=== PATIENT | female | born 1930 | race African-American/Black ===

== ENCOUNTER 2018-05-05 15:22 | Inpatient (IN) | payer MEDICARE ==
[~2018-05-05] VITALS: Ht 157.5 cm; Wt 51.7 kg
--- NOTE | 2018-05-05 15:38 | Emergency Room Report ---
History of Present Illness General Chief Complaint: Generalized Weakness Source: Patient, Family Member Present Illness HPI 87-year-old female with history of autoimmune hepatitis and subsequent cirrhosis , diabetes, CAD, presents with an episode of vomiting last week as well as generalized weakness and inability to tolerate her home meds, including lactulose. She has not had any falls, no injuries and family reports that she is talking more slowly than usual but not slurred and no focal weaknesses or any new complaints. She comes from home and has a Sosa catheter indwelling, and that has not been changed for one month. Allergies: Coded Allergies: No Known Allergies (Unverified , 05/05/18) Patient History Limited by: medical condition Past Medical History: see triage record Reviewed Nursing Documentation: PMH: Agreed; PSxH: Agreed Review of Systems All Other Systems: negative except mentioned in HPI Physical Exam Vital Signs Date Time Temp Pulse Resp B/P (MAP) Pulse Ox O2 Delivery O2 Flow Rate FiO2 05/05/18 15:14 85 18 129/52 97 Room Air Sp02 EP Interpretation: reviewed, normal General Appearance: alert, mild distress Head: normocephalic Eyes: bilateral eye normal inspection, bilateral eye PERRL, bilateral eye EOMI , bilateral eye Scleral Injection ENT: normal ENT inspection, hearing grossly normal, normal pharynx, no angioedema, normal voice - Slow, but steady without dysarthria, moist mucus membranes Neck: normal inspection, full range of motion, supple, supple/symm/no masses Respiratory: chest non-tender, lungs clear, normal breath sounds, chest symmetrical, palpation of chest normal Cardiovascular #1: normal peripheral pulses, regular rate, rhythm Cardiovascular #2: 2+ radial (R), 2+ radial (L) Gastrointestinal: non tender, soft, no guarding, no rebound, distended Rectal: deferred Genitourinary: normal inspection, no CVA tenderness Musculoskeletal: back normal, gait/station normal, normal range of motion, non- tender, no calf tenderness Neurologic: alert, responsive, assistant portfolio 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 No abdominal pain, no rebound tenderness, although positive ascites on exam, do not suspect SBP. Patient found to be in renal failure, never had HD before, but with known h/o CKD, was on hospice and now family has taken her off of it and want to pursue care. EKG Diagnostic Results EKG Time: 15:51 EP Interpretation: no st-t changes, no twi's Rate: normal Rhythm: NSR ST Segments: no acute changes Rhythm Strip Diag. Results Rhythm Strip Time: 16:03 EP Interpretation: yes Rate: 87 Rhythm: NSR, no PVC's, no ectopy Chest X-Ray Diagnostic Results Chest X-Ray Diagnostic Results : Chest X-Ray Ordered: Yes # of Views/Limited/Complete: 1 View Indication: Other EP Interpretation: Yes PA Xray: Interpretation reviewed Interpretation: no consolidation, no effusion, no pneumothorax, no acute cardiopulmonary disease Impression: No acute disease Electronically Signed by: Mat Hayden MD CT/MRI/US Diagnostic Results CT/MRI/US Diagnostic Results : Imaging Test Ordered: ct head Impression old lacunar infarct Last Vital Signs Date Time Temp Pulse Resp B/P (MAP) Pulse Ox O2 Delivery O2 Flow Rate FiO2 05/05/18 15:14 85 18 129/52 97 Room Air Disposition: ADMITTED INPATIENT Condition: Stable MAT HAYDEN M.D May 05, 2018 15:38
[2018-05-05] MEDS ORDERED: UNOBMED (15:54)
[2018-05-05 16:45] LABS: APPEARANCE,URINE CLOUDY; BILIRUBIN, URINE NEGATIVE (NEGATIVE); GLUCOSE, URINE (UA) NEGATIVE (NEGATIVE); KETONES,URINE 1+ (NEGATIVE); LEUKOCYTE ESTERASE ,URINE 3+ (NEGATIVE); NITRITE,URINE POSITIVE (NEGATIVE); PH,URINE 6.5 (4.5-8.0); PROTEIN,URINE 4+ (NEGATIVE); UROBILINOGEN,URINE NORMAL MG/DL (0.0-1.0)
[2018-05-05 16:47] LABS: COLOR,URINE YELLOW
--- NOTE | 2018-05-05 17:02 | Diagnostic Imaging Report ---
Indication: Chest Technique: One view of the chest Comparison: none Findings: Lungs and pleural spaces are clear. Heart size is normal Impression: No acute process
--- NOTE | 2018-05-05 17:02 | Diagnostic Imaging Report ---
Indications: Altered mental status Technique: Spiral acquisitions obtained through the brain. Angled axial and coronal 5 x 5 mm slices were reconstructed. Total dose length product 1245.59 mGycm. CTDI vol(s) 70.38 mGy. Dose reduction achieved using automated exposure control Comparison: None. Findings: Old lacunar infarct is seen in the anterior right lentiform nucleus. Old lacunar infarct is seen in the anterior limb of the left internal capsule and another in the left lentiform nucleus. No acute intracranial hemorrhage nor edema, mass effect, nor midline shift. There is age-related enlargement of the ventricles and extra-axial CSF spaces and periventricular deep white matter chronic low-attenuation. The calvarium is intact. The orbits and sinuses are unremarkable. Impression: Chronic and age-related changes Negative for acute intracranial bleed or mass effect The CT scanner at [facility] is accredited by the [employer] and the scans are performed using protocols designed to limit radiation exposure to as low as reasonably achievable to attain images of sufficient resolution adequate for diagnostic evaluation.
[2018-05-05 17:11] LABS: AMMONIA 34 umol/L (11-32)
[2018-05-05] MEDS ORDERED: cefTRIAXone 1 GM in NS 55 ML IVPB ONE (17:15)
[2018-05-05 17:21] LABS: ANION GAP 30 mmol/L (5-15); BLOOD UREA NITROGEN 196 mg/dL (7-18); CALCIUM 8.8 MG/DL (8.5-10.1); CARBON DIOXIDE 11 MMOL/L (21-32); CHLORIDE 106 MMOL/L (98-107); CREATININE 16.6 MG/DL (0.55-1.30); POTASSIUM 4.9 MMOL/L (3.5-5.1); SODIUM 147 MMOL/L (136-145)
[2018-05-05 17:23] LABS: ALANINE AMINOTRANSFERASE 18 U/L (12-78); ALBUMIN 2.4 G/DL (3.4-5.0); ALBUMIN/GLOBULIN RATIO 0.5 (1.0-2.7); ALKALINE PHOSPHATASE 132 U/L (46-116); ASPARTATE AMINO TRANSFERASE 33 U/L (15-37); BILIRUBIN,TOTAL 0.8 MG/DL (0.2-1.0); CKMB 13.2 NG/ML (0.0-3.6); CREATINE KINASE 259 U/L (26-308)
[2018-05-05 17:57] LABS: HEMATOCRIT 28.8 % (37.0-47.0); HEMOGLOBIN 9.1 G/DL (12.0-16.0); MEAN CORPUSCULAR VOLUME 104 FL (80-99); PLATELET COUNT 63 K/UL (150-450); RED BLOOD COUNT 2.77 M/UL (4.20-5.40); RED CELL DISTRIBUTION WIDTH 13.6 % (11.6-14.8); WHITE BLOOD COUNT 7.3 K/UL (4.8-10.8)
[2018-05-05 17:58] VITALS: BP 101/51
[2018-05-05] MEDS ORDERED: Lactulose 20gm/30ml UDC ORAL ONE (18:00)
[2018-05-05 19:30] VITALS: BP 91/48
[2018-05-05 21:00] VITALS: BP 96/53
[2018-05-05] MEDS ORDERED: Albumin Human 5% 250ml IV SCH (21:00)
[2018-05-05 23:00] VITALS: BP 103/65
[2018-05-05] MEDS ORDERED: Acetaminophen 650mg/20.3ml GT PRN (23:15)
[2018-05-05] MEDS: Pantoprazole Inj IVP SCH (23:41)
--- NOTE | 2018-05-05 23:48 | Cardiology Progress Note ---
Assessment/Plan Assessment/Plan The patient is seen and examined, full consult note will be dictated shortly. Objective Last 24 Hour Vital Signs Date Time Temp Pulse Resp B/P (MAP) Pulse Ox O2 Delivery O2 Flow Rate FiO2 05/05/18 22:05 97.8 74 19 99/53 98 Room Air 05/05/18 21:00 97.6 74 17 96/53 98 Room Air 97.6 05/05/18 19:30 97.7 76 18 91/48 98 Room Air 97.7 05/05/18 17:58 79 18 101/51 98 Room Air 05/05/18 15:14 85 18 129/52 97 Room Air Laboratory Tests Test 05/05/18 15:32 05/05/18 16:17 05/05/18 17:20 05/05/18 18:40 Sodium Level 147 MMOL/L (136-145) H Potassium Level 4.9 MMOL/L (3.5-5.1) Chloride Level 106 MMOL/L (98-107) Carbon Dioxide Level 11 MMOL/L (21-32) L Anion Gap 30 mmol/L (5-15) H Blood Urea Nitrogen 196 mg/dL (7-18) H Creatinine 16.6 MG/DL (0.55-1.30) H Estimat Glomerular Filtration Rate mL/min (>60) Glucose Level 108 MG/DL (74-106) H Lactic Acid Level 6.60 mmol/L (0.4-2.0) H 6.70 mmol/L (0.66-2.22) H Calcium Level 8.8 MG/DL (8.5-10.1) Total Bilirubin 0.8 MG/DL (0.2-1.0) Aspartate Amino Transf (AST/SGOT) 33 U/L (15-37) Alanine Aminotransferase (ALT/SGPT) 18 U/L (12-78) Alkaline Phosphatase 132 U/L (46-116) H Ammonia 34 umol/L (11-32) H Total Creatine Kinase 259 U/L (26-308) Creatine Kinase MB 13.2 NG/ML (0.0-3.6) H Creatine Kinase MB Relative Index 5.0 Troponin I 0.727 ng/mL (0.000-0.056) C-Reactive Protein, Quantitative 2.4 mg/dL (0.00-0.90) H Total Protein 7.3 G/DL (6.4-8.2) Albumin 2.4 G/DL (3.4-5.0) L Globulin 4.9 g/dL Albumin/Globulin Ratio 0.5 (1.0-2.7) L Urine Color Yellow Urine Appearance Cloudy Urine pH 6.5 (4.5-8.0) Urine Specific [place] 1.015 (1.005-1.035) Urine Protein 4+ (NEGATIVE) H Urine Glucose (UA) Negative (NEGATIVE) Urine Ketones 1+ (NEGATIVE) H Urine Blood 5+ (NEGATIVE) H Urine Nitrite Positive (NEGATIVE) H Urine Bilirubin Negative (NEGATIVE) Urine Urobilinogen Normal MG/DL (0.0-1.0) Urine Leukocyte Esterase 3+ (NEGATIVE) H Urine RBC 5-10 /HPF (0 - 2) H Urine WBC 20-30 /HPF (0 - 2) H Urine Squamous Epithelial Cells Few /LPF (NONE/OCC) Urine Amorphous Sediment Few /LPF (NONE) H Urine Bacteria Many /HPF (NONE) H Urine Yeast Moderate /HPF (NONE) H White Blood Count 7.3 K/UL (4.8-10.8) Red Blood Count 2.77 M/UL (4.20-5.40) L Hemoglobin 9.1 G/DL (12.0-16.0) L Hematocrit 28.8 % (37.0-47.0) L Mean Corpuscular Volume 104 FL (80-99) H Mean Corpuscular Hemoglobin 33.1 PG (27.0-31.0) H Mean Corpuscular Hemoglobin Concent 31.8 G/DL (32.0-36.0) L Red Cell Distribution Width 13.6 % (11.6-14.8) Platelet Count 63 K/UL (150-450) L Mean Platelet Volume 7.6 FL (6.5-10.1) Neutrophils (%) (Auto) % (45.0-75.0) Lymphocytes (%) (Auto) % (20.0-45.0) Monocytes (%) (Auto) % (1.0-10.0) Eosinophils (%) (Auto) % (0.0-3.0) Basophils (%) (Auto) % (0.0-2.0) Differential Total Cells Counted 100 Neutrophils % (Manual) 93 % (45-75) H Lymphocytes % (Manual) 4 % (20-45) L Monocytes % (Manual) 3 % (1-10) Eosinophils % (Manual) 0 % (0-3) Basophils % (Manual) 0 % (0-2) Band Neutrophils 0 % (0-8) Platelet Estimate Decreased L Platelet Morphology Normal Hypochromasia 1+ Anisocytosis 1+ Macrocytosis 2+ Rubio Meyer MD May 05, 2018 23:48
[2018-05-06] MEDS: Sodium Bicarbonate 50 ML in D5 1/2NS 1,000 ML IV SCH ×2 (00:20→13:35)
[2018-05-06] MEDS ORDERED: LACTULOSE10 GM/153 PO (01:07)
[2018-05-06] MEDS ORDERED: NEPHROVITE1 TAB ORAL (01:07)
[2018-05-06] MEDS ORDERED: ALPRAZOLAM0.5 MG PO (01:08)
[2018-05-06] MEDS ORDERED: FUROSEMIDE40 MG ORAL (01:09)
[2018-05-06] MEDS ORDERED: XIFAXAN550 MG ORAL (01:09)
[2018-05-06 04:00] VITALS: BP 120/66
[2018-05-06 05:10] LABS: HEMATOCRIT 23.2 % (37.0-47.0); HEMOGLOBIN 7.5 G/DL (12.0-16.0); MEAN CORPUSCULAR VOLUME 105 FL (80-99); PLATELET COUNT 42 K/UL (150-450); RED BLOOD COUNT 2.21 M/UL (4.20-5.40); RED CELL DISTRIBUTION WIDTH 13.5 % (11.6-14.8); WHITE BLOOD COUNT 5.3 K/UL (4.8-10.8)
[2018-05-06 05:26] LABS: AMMONIA < 10 umol/L (11-32)
[2018-05-06 05:31] LABS: ALANINE AMINOTRANSFERASE 18 U/L (12-78); ALBUMIN 2.8 G/DL (3.4-5.0); ALBUMIN/GLOBULIN RATIO 0.7 (1.0-2.7); ALKALINE PHOSPHATASE 112 U/L (46-116); ANION GAP 34 mmol/L (5-15); ASPARTATE AMINO TRANSFERASE 28 U/L (15-37); BILIRUBIN,TOTAL 0.9 MG/DL (0.2-1.0); BLOOD UREA NITROGEN 199 mg/dL (7-18); CALCIUM 8.5 MG/DL (8.5-10.1); CHLORIDE 107 MMOL/L (98-107); CHOLESTEROL 134 MG/DL (< 200); CREATINE KINASE 240 U/L (26-308); CREATININE 16.5 MG/DL (0.55-1.30); FERRITIN 734 NG/ML (8-388); GAMMA GLUTAMYL TRANSPEPTIDASE 67 U/L (5-85); HDL CHOLESTEROL 15 MG/DL (40-60); PHOSPHORUS 17.7 MG/DL (2.5-4.9); POTASSIUM 4.2 MMOL/L (3.5-5.1); SODIUM 150 MMOL/L (136-145); TRIGLYCERIDES 148 MG/DL (30-150)
--- NOTE | 2018-05-06 05:45 | Consultation ---
DATE OF CONSULTATION: 05/05/2018 CARDIOLOGY CONSULTATION CONSULTING PHYSICIAN: Rubio Meyer M.D. REFERRING PHYSICIAN: Atilio Viera M.D. REASON FOR CONSULTATION: Management of hypotension. HISTORY OF PRESENT ILLNESS: The patient is a very unfortunate 87-year-old female with history of autoimmune hepatitis leading to liver cirrhosis, history of diabetes mellitus, history of coronary artery disease, history of chronic kidney disease, and history of hemorrhoidal bleed, who presents to the hospital with episode of vomiting as well as progressive worsening of generalized weakness, inability to tolerate home medication. The patient is a very poor historian and is not capable of providing any history due to altered level of consciousness. The patient comes from home with an indwelling Sosa catheter. According to the family member at the bedside, the urine output has diminished. Mental status has been gradually worsened. At the time of my evaluation in the emergency department, the patient's blood pressure was less than 100 mmHg in the emergency department. Apparently, the patient was at home hospice, but the family members changed the status of her home hospice to only Chemical Code. This information was obtained verbally in the emergency department of the [facility] on 05/05/2018. There is no formal documentation about the code status at this time. Given the above, the patient's disposition from the ER was upgraded from Medical/Surgical to telemetry. At the time of arrival of the patient to the hospital, the patient's rhythm was in sinus with short runs of supraventricular tachycardia. PAST MEDICAL HISTORY: 1. Autoimmune hepatitis. 2. Liver cirrhosis. 3. Hemorrhoidal bleed. 4. Diabetes mellitus. 5. Chronic kidney disease. 6. CAD. 7. Failure to thrive. PAST SURGICAL HISTORY: Unknown. MEDICATIONS: At this time, the list of medication at home is not available. ALLERGIES: No known drug allergies. FAMILY HISTORY: No premature coronary artery disease in first-degree relatives. REVIEW OF SYSTEMS: The patient is altered and is not capable of providing any history. PHYSICAL EXAMINATION: GENERAL: The patient was altered, not capable of providing any history. VITAL SIGNS: Blood pressure in the emergency department was 99/48, heart rate was 95, respirations of 18, and O2 saturation was 92%. HEENT: Atraumatic and normocephalic. Pupils are equal, round, and reactive to light and accommodation. Conjunctivae pallor. NECK: JVP less than 5 cm. No carotid bruit. CARDIOVASCULAR: Normal S1 and S2. Tachycardic. No murmurs, gallops, or rubs. LUNGS: Diminished breath sounds in both bases. ABDOMEN: Soft, nontender, and nondistended. No hepatosplenomegaly. Positive bowel sounds. EXTREMITIES: No evidence of edema, clubbing, or cyanosis. LABORATORY AND DIAGNOSTIC DATA: CT of head showed chronic and age-related changes negative for acute intracranial bleed or mass effect. Chest x-ray was significant for no acute cardiopulmonary disease. A 12-lead electrocardiogram shows sinus rhythm at a rate of [address] and T-wave abnormalities. Laboratory findings, WBC was 7.3, hemoglobin 9.1, hematocrit of 28.8, and platelet count was 63. Chemistry showed sodium 147, potassium 4.9, chloride 106, bicarbonate 11, BUN of 196, creatinine 16.6, and glucose was 108. Lactic acid was 6.6. Calcium was 8.8. Ammonia of 34. Troponin I 0.727. ASSESSMENT AND PLAN: The patient is a very unfortunate 87-year-old female, who is seen in Cardiology consultation at the request of Dr. Viera. 1. Hypotension. This is most likely due to septic shock or hypoalbuminemia associated with liver cirrhosis. The patient's albumin level is 2.4. She may benefit from 15% albumin to 25% albumin administration. If the blood pressure is not well preserved, one may have to consider IV pressors. 2. Slight elevation of troponin I level, could be a variety of etiologies including , non-ST elevation myocardial infarction type 2, or troponin leakage associated with renal failure. At this time, given the patient's comorbidities including liver cirrhosis and severe renal failure, the patient is not considered to be a suitable candidate for ischemic workup. We will like to obtain 2D echocardiography for assessment of left ventricular systolic and diastolic function and evaluation of pulmonary artery pressure. I would like to thank, Dr. Viera, for the courtesy of this consultation. Rubio Meyer M.D. DR: ANNIE JOB#: [id number] CC:
[2018-05-06 05:55] LABS: CARBON DIOXIDE 9 MMOL/L (21-32)
[2018-05-06 06:27] LABS: % IRON SATURATION 97 % (15-50); IRON 70 ug/dL (50-175); TOTAL IRON BINDING CAPACITY 72 ug/dL (250-450)
[2018-05-06 07:46] VITALS: BP 105/62
[2018-05-06] MEDS: Pantoprazole Inj IVP SCH (08:18)
--- NOTE | 2018-05-06 08:56 | Consultation ---
Consult Note Consult Note asked to eval for renal failure 87-year-old female with history of autoimmune hepatitis and subsequent cirrhosis , diabetes, CAD, presents with an episode of vomiting last week as well as generalized weakness and inability to tolerate her home meds, including lactulose. She has not had any falls, no injuries and family reports that she is talking more slowly than usual but not slurred and no focal weaknesses or any new complaints. She comes from home and has a Sosa catheter indwelling, and that has not been changed for one month. No Known Allergies (Unverified , 05/05/18) Sp02 EP Interpretation: reviewed, normal General Appearance: alert, mild distress Head: normocephalic Eyes: bilateral eye normal inspection, bilateral eye PERRL, bilateral eye EOMI , bilateral eye Scleral Injection ENT: normal ENT inspection, hearing grossly normal, normal pharynx, no angioedema, normal voice - Slow, but steady without dysarthria, moist mucus membranes Neck: normal inspection, full range of motion, supple, supple/symm/no masses Respiratory: chest non-tender, lungs clear, normal breath sounds, chest symmetrical, palpation of chest normal Cardiovascular #1: normal peripheral pulses, regular rate, rhythm Cardiovascular #2: 2+ radial (R), 2+ radial (L) Gastrointestinal: non tender, soft, no guarding, no rebound, distended Rectal: deferred Genitourinary: normal inspection, no CVA tenderness Musculoskeletal: back normal, gait/station normal, normal range of motion, non- tender, no calf tenderness Neurologic: alert, responsive, 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 . Assessment/Plan acute on chronic renal failure Anemia was on Hospice, but taken off family agree with no chest compression and intubation UTI Cachexia metabolic acidosis : High lactate and Uremia dialysis cath dialysis transfusion per orders Gage Medley MD May 06, 2018 08:56
[2018-05-06] MEDS ORDERED: Metoclopramide 10mg/2ml Inj IVP PRN (09:09)
--- NOTE | 2018-05-06 10:22 | Consultation ---
Consult Note Assessment/Plan Patient seen and examined. Full dictation to follow. Hemanth Gee MD May 06, 2018 10:22
[2018-05-06 10:54] LABS: INR 1.8 (0.9-1.1)
--- NOTE | 2018-05-06 11:42 | Consultation ---
History of Present Illness General Date patient seen: May 06, 2018 Chief Complaint: Generalized Weakness Present Illness HPI 87-year-old female with history of autoimmune hepatitis and subsequent cirrhosis , diabetes, CAD, presents with an episode of vomiting last and weakness. the pt was agitated and confused. the pt has waxing and waning of consciousness/ The family were in room who stated that the pt didn't sleep last night. Allergies: Coded Allergies: CLONIDINE (Unverified Allergy, Mild, Rash, 05/06/18) clonidine patch* Medication History Scheduled Furosemide* (Lasix*), 40 MG ORAL TWICE A DAY, (Reported) Lactulose (Lactulose), 30 GM PO TID, (Reported) Rifaximin* (Xifaxan*), 550 MG ORAL TWICE A DAY, (Reported) Vitamin B Cmplx/Vit C/Folic AC (Nephro-Luis Tablet), 1 TAB ORAL DAILY, (Reported ) Scheduled PRN Alprazolam* (Xanax*), 0.5 MG PO TID PRN for For Anxiety, (Reported) Miscellaneous Medications Unable to Obtain Medications (Unable To Obtain Meds), (Reported) Patient History Limited by: medical condition History Provided By: Patient, Family Member, Medical Record, PMD Healthcare decision maker Resuscitation status Full Code Advanced Directive on File Past Medical/Surgical History Past Medical/Surgical History: (1) Renal failure (2) UTI (urinary tract infection) (3) Episode of generalized weakness Review of Systems Psychiatric: Reports: prior hx, anxiety, depressed feelings, emotional problems , hallucinations Physical Exam General Appearance: WD/WN, alert, confused, agitated Last 24 Hour Vital Signs Date Time Temp Pulse Resp B/P (MAP) Pulse Ox O2 Delivery O2 Flow Rate FiO2 05/06/18 09:50 94 Nasal Cannula 3.0 32 05/06/18 09:50 Nasal Cannula 3.0 32 05/06/18 07:46 86 20 105/62 (76) 05/06/18 07:45 88 05/06/18 07:28 Nasal Cannula 3.0 05/06/18 04:00 88 05/06/18 04:00 97.0 79 20 120/66 (84) 94 97.0 05/05/18 23:00 97.0 91 20 103/65 (78) 94 97.0 05/05/18 22:44 Nasal Cannula 3.0 05/05/18 22:44 91 05/05/18 22:05 97.8 74 19 99/53 98 Room Air 05/05/18 21:00 97.6 74 17 96/53 98 Room Air 97.6 05/05/18 19:30 97.7 76 18 91/48 98 Room Air 97.7 05/05/18 17:58 79 18 101/51 98 Room Air 05/05/18 15:14 85 18 129/52 97 Room Air Intake and Output 05/05/18 05/06/18 19:00 07:00 Intake Total 75 ml Output Total 30 ml Balance -30 ml 75 ml Intake IV Total 75 ml Output Urine Total 30 ml # Voids 3 # Bowel Movements 6 Laboratory Tests Test 05/05/18 15:32 05/05/18 16:17 05/05/18 17:20 05/05/18 18:40 Sodium Level 147 MMOL/L (136-145) H Potassium Level 4.9 MMOL/L (3.5-5.1) Chloride Level 106 MMOL/L (98-107) Carbon Dioxide Level 11 MMOL/L (21-32) L Anion Gap 30 mmol/L (5-15) H Blood Urea Nitrogen 196 mg/dL (7-18) H Creatinine 16.6 MG/DL (0.55-1.30) H Estimat Glomerular Filtration Rate mL/min (>60) Glucose Level 108 MG/DL (74-106) H Lactic Acid Level 6.60 mmol/L (0.4-2.0) H 6.70 mmol/L (0.66-2.22) H Calcium Level 8.8 MG/DL (8.5-10.1) Total Bilirubin 0.8 MG/DL (0.2-1.0) Aspartate Amino Transf (AST/SGOT) 33 U/L (15-37) Alanine Aminotransferase (ALT/SGPT) 18 U/L (12-78) Alkaline Phosphatase 132 U/L (46-116) H Ammonia 34 umol/L (11-32) H Total Creatine Kinase 259 U/L (26-308) Creatine Kinase MB 13.2 NG/ML (0.0-3.6) H Creatine Kinase MB Relative Index 5.0 Troponin I 0.727 ng/mL (0.000-0.056) C-Reactive Protein, Quantitative 2.4 mg/dL (0.00-0.90) H Total Protein 7.3 G/DL (6.4-8.2) Albumin 2.4 G/DL (3.4-5.0) L Globulin 4.9 g/dL Albumin/Globulin Ratio 0.5 (1.0-2.7) L Urine Color Yellow Urine Appearance Cloudy Urine pH 6.5 (4.5-8.0) Urine Specific [place] 1.015 (1.005-1.035) Urine Protein 4+ (NEGATIVE) H Urine Glucose (UA) Negative (NEGATIVE) Urine Ketones 1+ (NEGATIVE) H Urine Blood 5+ (NEGATIVE) H Urine Nitrite Positive (NEGATIVE) H Urine Bilirubin Negative (NEGATIVE) Urine Urobilinogen Normal MG/DL (0.0-1.0) Urine Leukocyte Esterase 3+ (NEGATIVE) H Urine RBC 5-10 /HPF (0 - 2) H Urine WBC 20-30 /HPF (0 - 2) H Urine Squamous Epithelial Cells Few /LPF (NONE/OCC) Urine Amorphous Sediment Few /LPF (NONE) H Urine Bacteria Many /HPF (NONE) H Urine Yeast Moderate /HPF (NONE) H White Blood Count 7.3 K/UL (4.8-10.8) Red Blood Count 2.77 M/UL (4.20-5.40) L Hemoglobin 9.1 G/DL (12.0-16.0) L Hematocrit 28.8 % (37.0-47.0) L Mean Corpuscular Volume 104 FL (80-99) H Mean Corpuscular Hemoglobin 33.1 PG (27.0-31.0) H Mean Corpuscular Hemoglobin Concent 31.8 G/DL (32.0-36.0) L Red Cell Distribution Width 13.6 % (11.6-14.8) Platelet Count 63 K/UL (150-450) L Mean Platelet Volume 7.6 FL (6.5-10.1) Neutrophils (%) (Auto) % (45.0-75.0) Lymphocytes (%) (Auto) % (20.0-45.0) Monocytes (%) (Auto) % (1.0-10.0) Eosinophils (%) (Auto) % (0.0-3.0) Basophils (%) (Auto) % (0.0-2.0) Differential Total Cells Counted 100 Neutrophils % (Manual) 93 % (45-75) H Lymphocytes % (Manual) 4 % (20-45) L Monocytes % (Manual) 3 % (1-10) Eosinophils % (Manual) 0 % (0-3) Basophils % (Manual) 0 % (0-2) Band Neutrophils 0 % (0-8) Platelet Estimate Decreased L Platelet Morphology Normal Hypochromasia 1+ Anisocytosis 1+ Macrocytosis 2+ Test 05/06/18 03:53 05/06/18 06:05 05/06/18 07:53 05/06/18 10:10 White Blood Count 5.3 K/UL (4.8-10.8) Red Blood Count 2.21 M/UL (4.20-5.40) L Hemoglobin 7.5 G/DL (12.0-16.0) L Hematocrit 23.2 % (37.0-47.0) L Mean Corpuscular Volume 105 FL (80-99) H Mean Corpuscular Hemoglobin 33.8 PG (27.0-31.0) H Mean Corpuscular Hemoglobin Concent 32.2 G/DL (32.0-36.0) Red Cell Distribution Width 13.5 % (11.6-14.8) Platelet Count 42 K/UL (150-450) L Mean Platelet Volume 9.1 FL (6.5-10.1) Neutrophils (%) (Auto) % (45.0-75.0) Lymphocytes (%) (Auto) % (20.0-45.0) Monocytes (%) (Auto) % (1.0-10.0) Eosinophils (%) (Auto) % (0.0-3.0) Basophils (%) (Auto) % (0.0-2.0) Differential Total Cells Counted 100 Neutrophils % (Manual) 82 % (45-75) H Lymphocytes % (Manual) 2 % (20-45) L Monocytes % (Manual) 13 % (1-10) H Eosinophils % (Manual) 2 % (0-3) Basophils % (Manual) 1 % (0-2) Band Neutrophils 0 % (0-8) Platelet Estimate Decreased L Platelet Morphology Normal Hypochromasia 3+ Anisocytosis 1+ Macrocytosis 1+ Sodium Level 150 MMOL/L (136-145) H Potassium Level 4.2 MMOL/L (3.5-5.1) Chloride Level 107 MMOL/L (98-107) Carbon Dioxide Level 9 MMOL/L (21-32) *L Anion Gap 34 mmol/L (5-15) H Blood Urea Nitrogen 199 mg/dL (7-18) H Creatinine 16.5 MG/DL (0.55-1.30) H Estimat Glomerular Filtration Rate mL/min (>60) Glucose Level 156 MG/DL (74-106) H Hemoglobin A1c 5.6 % (4.3-6.0) Lactic Acid Level 7.70 mmol/L (0.4-2.0) H 6.40 mmol/L (0.66-2.22) H Uric Acid 17.1 MG/DL (2.6-7.2) H Calcium Level 8.5 MG/DL (8.5-10.1) Phosphorus Level 17.7 MG/DL (2.5-4.9) H Magnesium Level 2.6 MG/DL (1.8-2.4) H Iron Level 70 ug/dL (50-175) Total Iron Binding Capacity 72 ug/dL (250-450) L Percent Iron Saturation 97 % (15-50) H Unsaturated Iron Binding 2 ug/dL (112-346) L Ferritin 734 NG/ML (8-388) H Total Bilirubin 0.9 MG/DL (0.2-1.0) Gamma Glutamyl Transpeptidase 67 U/L (5-85) Aspartate Amino Transf (AST/SGOT) 28 U/L (15-37) Alanine Aminotransferase (ALT/SGPT) 18 U/L (12-78) Alkaline Phosphatase 112 U/L (46-116) Ammonia < 10 umol/L (11-32) L Total Creatine Kinase 240 U/L (26-308) Troponin I 0.747 ng/mL (0.000-0.056) C-Reactive Protein, Quantitative 2.5 mg/dL (0.00-0.90) H Pro-B-Type Natriuretic Peptide 6796 pg/mL (0-125) H Total Protein 6.7 G/DL (6.4-8.2) Albumin 2.8 G/DL (3.4-5.0) L Globulin 3.9 g/dL Albumin/Globulin Ratio 0.7 (1.0-2.7) L Triglycerides Level 148 MG/DL (30-150) Cholesterol Level 134 MG/DL (< 200) LDL Cholesterol 92 mg/dL (<100) HDL Cholesterol 15 MG/DL (40-60) L Cholesterol/HDL Ratio 8.9 (3.3-4.4) H Lipase 1304 U/L (73-393) H Vitamin B12 Level > 2000 PG/ML (193-986) H Folate 65.4 NG/ML (8.6-58.9) H Thyroid Stimulating Hormone (TSH) 0.775 uiU/mL (0.358-3.740) Cortisol AM Sample Pending Stool Occult Blood Positive (NEGATIVE) Hepatitis A IgM Antibody Pending Hepatitis B Surface Antigen Pending Hepatitis B Core IgM Antibody Pending Hepatitis C Antibody Pending HIV (1&2) Antibody Rapid Negative (NEGATIVE) Prothrombin Time 18.1 SEC (9.30-11.50) H Prothromb Time International Ratio 1.8 (0.9-1.1) H Activated Partial Thromboplast Time 55 SEC (23-33) H Microbiology Date/Time Source Procedure Growth Status 05/05/18 16:17 Urine,Clean Catch Urine Culture - Preliminary Resulted Height (Feet): 5 Height (Inches): 2.00 Weight (Pounds): 114 Medications Current Medications Medications (Trade) Dose Ordered Sig/Dean Route PRN Reason Start Time Stop Time Status Last Admin Dose Admin Acetaminophen (Tylenol) 650 mg Q4H PRN GT MILD PAIN AND TEMP 05/05/18 23:15 06/04/18 23:14 05/05/18 23:41 Allopurinol (Allopurinol) 300 mg DAILY ORAL 05/07/18 09:00 06/06/18 08:59 Docusate Sodium (Colace) 100 mg THREE TIMES A DAY ORAL 05/06/18 13:00 06/05/18 12:59 Metoclopramide HCl (Reglan) 10 mg Q6H PRN IVP Nausea & Vomiting 05/06/18 09:09 06/05/18 09:08 Olanzapine (ZyPREXA) 5 mg BEDTIME ORAL 05/06/18 21:00 06/05/18 20:59 UNV Ondansetron HCl (Zofran) 4 mg Q6H PRN IVP Nausea & Vomiting 05/05/18 23:00 06/04/18 22:59 05/06/18 02:15 Pantoprazole (Protonix) 40 mg DAILY IVP 05/05/18 20:30 06/04/18 20:29 05/06/18 08:18 Sevelamer Carbonate (Renvela) 800 mg TIAC ORAL 05/06/18 11:30 06/05/18 11:29 Sodium Bicarbonate 50 ml/ Dextrose/Sodium Chloride 1,050 ml @ 75 mls/hr Q14H IV 05/05/18 21:30 06/04/18 21:29 05/06/18 00:20 Sodium Citrate (Bicitra) 30 ml EVERY 6 HOURS ORAL 05/06/18 12:00 06/05/18 11:59 Assessment/Plan Status: stable Assessment/Plan encephalopathy due to [facility] Dementia -dc Xanax -Zyprexa 5mg qhs -Zyprexa 2.5mg q 6hr/prn Yann Gross MD May 06, 2018 11:42
[2018-05-06 12:00] VITALS: BP 115/60
[2018-05-06] MEDS ORDERED: Docusate 100mg cap ORAL SCH (13:00)
[2018-05-06] MEDS: OLANZapine 2.5mg tab ORAL PRN (13:10)
[2018-05-06] MEDS: Sodium Citrate 30ml ORAL SCH ×2 (13:10→17:12)
--- NOTE | 2018-05-06 13:24 | GI Initial Consult Note ---
History of Present Illness General Date patient seen: May 06, 2018 Time patient seen: 13:10 Reason for Hospitalization: Generalized Weakness Referring physician: ROMAN FIELDS Reason for Consultation: AIH Present Illness HPI 87-year-old female with history of autoimmune hepatitis and subsequent cirrhosis , diabetes, CAD, presents with an episode of vomiting last week as well as generalized weakness and inability to tolerate her home meds, including lactulose. She has not had any falls, no injuries and family reports that she is talking more slowly than usual but not slurred and no focal weaknesses or any new complaints. She comes from home and has a Sosa catheter indwelling, and that has not been changed for one month. GI consulted for AIH. ROS limited, pt seen lethargic, AMS. Daughter at bedside. No active s/sx of N/V/D. Per daughter, patient began to have cognitive decline, poor PO intake, AMS and episodes of N/V/D last week. Patient has had diagnosis of AIH 10+ years, primary MD at [facility]. She has cirrhosis, and Pleur X to the RUQ. The patient had recent colonoscopy back in October for rectal bleeding. Presents today with anemia, elevated troponin levels and positive occult stools. Home Meds Reported Medications Rifaximin* (XIFAXAN*) 550 Mg Tablet, 550 MG ORAL TWICE A DAY for 30 Days, MG 0 Refills 05/06/18 Furosemide* (LASIX*) 40 Mg Tablet, 40 MG ORAL TWICE A DAY, TAB 0 Refills 05/06/18 Alprazolam* (XANAX*) 0.5 Mg Tablet, 0.5 MG PO TID PRN for For Anxiety, TAB 05/06/18 Lactulose (LACTULOSE) 10 Gm/15 Ml Solution, 30 GM PO TID 05/06/18 Vitamin B Cmplx/Vit C/Folic AC (Nephro-Luis Tablet) 0.8 Mg Tablet, 1 TAB ORAL DAILY, #30 TAB 0 Refills 05/06/18 Unable to Obtain Medications (UNABLE TO OBTAIN MEDS) 1 Ea Ea 05/05/18 Med list reviewed/reconciled: Yes Allergies: Coded Allergies: CLONIDINE (Unverified Allergy, Mild, Rash, 05/06/18) clonidine patch* Patient History Limited by: medical condition History Provided By: Family Member, Medical Record PMH Narrative Limited by: medical condition Past Medical History: see triage record Reviewed Nursing Documentation: PMH: Agreed; PSxH: Agreed Review of Systems All Other Systems: limited Physical Exam Vital Signs Date Time Temp Pulse Resp B/P (MAP) Pulse Ox O2 Delivery O2 Flow Rate FiO2 05/05/18 15:14 85 18 129/52 97 Room Air 05/05/18 19:30 97.7 97.7 05/05/18 22:44 3.0 05/06/18 09:50 32 Sp02 EP Interpretation: reviewed, normal Labs Laboratory Tests Test 05/05/18 15:32 05/05/18 16:17 05/05/18 17:20 05/05/18 18:40 Sodium Level 147 MMOL/L (136-145) H Potassium Level 4.9 MMOL/L (3.5-5.1) Chloride Level 106 MMOL/L (98-107) Carbon Dioxide Level 11 MMOL/L (21-32) L Anion Gap 30 mmol/L (5-15) H Blood Urea Nitrogen 196 mg/dL (7-18) H Creatinine 16.6 MG/DL (0.55-1.30) H Estimat Glomerular Filtration Rate mL/min (>60) Glucose Level 108 MG/DL (74-106) H Lactic Acid Level 6.60 mmol/L (0.4-2.0) H 6.70 mmol/L (0.66-2.22) H Calcium Level 8.8 MG/DL (8.5-10.1) Total Bilirubin 0.8 MG/DL (0.2-1.0) Aspartate Amino Transf (AST/SGOT) 33 U/L (15-37) Alanine Aminotransferase (ALT/SGPT) 18 U/L (12-78) Alkaline Phosphatase 132 U/L (46-116) H Ammonia 34 umol/L (11-32) H Total Creatine Kinase 259 U/L (26-308) Creatine Kinase MB 13.2 NG/ML (0.0-3.6) H Creatine Kinase MB Relative Index 5.0 Troponin I 0.727 ng/mL (0.000-0.056) C-Reactive Protein, Quantitative 2.4 mg/dL (0.00-0.90) H Total Protein 7.3 G/DL (6.4-8.2) Albumin 2.4 G/DL (3.4-5.0) L Globulin 4.9 g/dL Albumin/Globulin Ratio 0.5 (1.0-2.7) L Urine Color Yellow Urine Appearance Cloudy Urine pH 6.5 (4.5-8.0) Urine Specific [place] 1.015 (1.005-1.035) Urine Protein 4+ (NEGATIVE) H Urine Glucose (UA) Negative (NEGATIVE) Urine Ketones 1+ (NEGATIVE) H Urine Blood 5+ (NEGATIVE) H Urine Nitrite Positive (NEGATIVE) H Urine Bilirubin Negative (NEGATIVE) Urine Urobilinogen Normal MG/DL (0.0-1.0) Urine Leukocyte Esterase 3+ (NEGATIVE) H Urine RBC 5-10 /HPF (0 - 2) H Urine WBC 20-30 /HPF (0 - 2) H Urine Squamous Epithelial Cells Few /LPF (NONE/OCC) Urine Amorphous Sediment Few /LPF (NONE) H Urine Bacteria Many /HPF (NONE) H Urine Yeast Moderate /HPF (NONE) H White Blood Count 7.3 K/UL (4.8-10.8) Red Blood Count 2.77 M/UL (4.20-5.40) L Hemoglobin 9.1 G/DL (12.0-16.0) L Hematocrit 28.8 % (37.0-47.0) L Mean Corpuscular Volume 104 FL (80-99) H Mean Corpuscular Hemoglobin 33.1 PG (27.0-31.0) H Mean Corpuscular Hemoglobin Concent 31.8 G/DL (32.0-36.0) L Red Cell Distribution Width 13.6 % (11.6-14.8) Platelet Count 63 K/UL (150-450) L Mean Platelet Volume 7.6 FL (6.5-10.1) Neutrophils (%) (Auto) % (45.0-75.0) Lymphocytes (%) (Auto) % (20.0-45.0) Monocytes (%) (Auto) % (1.0-10.0) Eosinophils (%) (Auto) % (0.0-3.0) Basophils (%) (Auto) % (0.0-2.0) Differential Total Cells Counted 100 Neutrophils % (Manual) 93 % (45-75) H Lymphocytes % (Manual) 4 % (20-45) L Monocytes % (Manual) 3 % (1-10) Eosinophils % (Manual) 0 % (0-3) Basophils % (Manual) 0 % (0-2) Band Neutrophils 0 % (0-8) Platelet Estimate Decreased L Platelet Morphology Normal Hypochromasia 1+ Anisocytosis 1+ Macrocytosis 2+ Test 05/06/18 03:53 05/06/18 06:05 05/06/18 07:53 05/06/18 10:10 White Blood Count 5.3 K/UL (4.8-10.8) Red Blood Count 2.21 M/UL (4.20-5.40) L Hemoglobin 7.5 G/DL (12.0-16.0) L Hematocrit 23.2 % (37.0-47.0) L Mean Corpuscular Volume 105 FL (80-99) H Mean Corpuscular Hemoglobin 33.8 PG (27.0-31.0) H Mean Corpuscular Hemoglobin Concent 32.2 G/DL (32.0-36.0) Red Cell Distribution Width 13.5 % (11.6-14.8) Platelet Count 42 K/UL (150-450) L Mean Platelet Volume 9.1 FL (6.5-10.1) Neutrophils (%) (Auto) % (45.0-75.0) Lymphocytes (%) (Auto) % (20.0-45.0) Monocytes (%) (Auto) % (1.0-10.0) Eosinophils (%) (Auto) % (0.0-3.0) Basophils (%) (Auto) % (0.0-2.0) Differential Total Cells Counted 100 Neutrophils % (Manual) 82 % (45-75) H Lymphocytes % (Manual) 2 % (20-45) L Monocytes % (Manual) 13 % (1-10) H Eosinophils % (Manual) 2 % (0-3) Basophils % (Manual) 1 % (0-2) Band Neutrophils 0 % (0-8) Platelet Estimate Decreased L Platelet Morphology Normal Hypochromasia 3+ Anisocytosis 1+ Macrocytosis 1+ Sodium Level 150 MMOL/L (136-145) H Potassium Level 4.2 MMOL/L (3.5-5.1) Chloride Level 107 MMOL/L (98-107) Carbon Dioxide Level 9 MMOL/L (21-32) *L Anion Gap 34 mmol/L (5-15) H Blood Urea Nitrogen 199 mg/dL (7-18) H Creatinine 16.5 MG/DL (0.55-1.30) H Estimat Glomerular Filtration Rate mL/min (>60) Glucose Level 156 MG/DL (74-106) H Hemoglobin A1c 5.6 % (4.3-6.0) Lactic Acid Level 7.70 mmol/L (0.4-2.0) H 6.40 mmol/L (0.66-2.22) H Uric Acid 17.1 MG/DL (2.6-7.2) H Calcium Level 8.5 MG/DL (8.5-10.1) Phosphorus Level 17.7 MG/DL (2.5-4.9) H Magnesium Level 2.6 MG/DL (1.8-2.4) H Iron Level 70 ug/dL (50-175) Total Iron Binding Capacity 72 ug/dL (250-450) L Percent Iron Saturation 97 % (15-50) H Unsaturated Iron Binding 2 ug/dL (112-346) L Ferritin 734 NG/ML (8-388) H Total Bilirubin 0.9 MG/DL (0.2-1.0) Gamma Glutamyl Transpeptidase 67 U/L (5-85) Aspartate Amino Transf (AST/SGOT) 28 U/L (15-37) Alanine Aminotransferase (ALT/SGPT) 18 U/L (12-78) Alkaline Phosphatase 112 U/L (46-116) Ammonia < 10 umol/L (11-32) L Total Creatine Kinase 240 U/L (26-308) Troponin I 0.747 ng/mL (0.000-0.056) C-Reactive Protein, Quantitative 2.5 mg/dL (0.00-0.90) H Pro-B-Type Natriuretic Peptide 6796 pg/mL (0-125) H Total Protein 6.7 G/DL (6.4-8.2) Albumin 2.8 G/DL (3.4-5.0) L Globulin 3.9 g/dL Albumin/Globulin Ratio 0.7 (1.0-2.7) L Triglycerides Level 148 MG/DL (30-150) Cholesterol Level 134 MG/DL (< 200) LDL Cholesterol 92 mg/dL (<100) HDL Cholesterol 15 MG/DL (40-60) L Cholesterol/HDL Ratio 8.9 (3.3-4.4) H Lipase 1304 U/L (73-393) H Vitamin B12 Level > 2000 PG/ML (193-986) H Folate 65.4 NG/ML (8.6-58.9) H Thyroid Stimulating Hormone (TSH) 0.775 uiU/mL (0.358-3.740) Cortisol AM Sample Pending Stool Occult Blood Positive (NEGATIVE) Hepatitis A IgM Antibody Pending Hepatitis B Surface Antigen Pending Hepatitis B Core IgM Antibody Pending Hepatitis C Antibody Pending HIV (1&2) Antibody Rapid Negative (NEGATIVE) Prothrombin Time 18.1 SEC (9.30-11.50) H Prothromb Time International Ratio 1.8 (0.9-1.1) H Activated Partial Thromboplast Time 55 SEC (23-33) H General Appearance: alert Head: normocephalic EENT: PERRL/EOMI, normal ENT inspection Neck: supple Respiratory: normal breath sounds, no respiratory distress Cardiovascular: normal rate Gastrointestinal: normal inspection, non tender, soft, normal bowel sounds, non -distended, other - Pleur X Rectal: deferred Genitourinary: no CVA tenderness Musculoskeletal: normal inspection, back normal Neurologic: normal inspection, alert, oriented x3, responsive Psychiatric: normal inspection, judgement/insight normal, memory normal Skin: normal inspection, normal color, no rash, warm/dry, palpation normal, well hydrated Lymphatic: normal inspection, no adenopathy Current Medications Current Medications Medications (Trade) Dose Ordered Sig/Dean Route PRN Reason Start Time Stop Time Status Last Admin Dose Admin Acetaminophen (Tylenol) 650 mg Q4H PRN GT MILD PAIN AND TEMP 05/05/18 23:15 06/04/18 23:14 05/05/18 23:41 Allopurinol (Allopurinol) 300 mg DAILY ORAL 05/07/18 09:00 06/06/18 08:59 Ceftriaxone Sodium 1 gm/ Dextrose 55 ml @ 110 mls/hr Q24H IVPB 05/06/18 13:15 05/13/18 13:14 UNV Docusate Sodium (Colace) 100 mg THREE TIMES A DAY ORAL 05/06/18 13:00 06/05/18 12:59 05/06/18 13:10 Metoclopramide HCl (Reglan) 10 mg Q6H PRN IVP Nausea & Vomiting 05/06/18 09:09 06/05/18 09:08 Olanzapine (ZyPREXA) 2.5 mg Q6H PRN ORAL Agitation 05/06/18 11:45 06/05/18 11:44 05/06/18 13:10 Olanzapine (ZyPREXA) 5 mg BEDTIME ORAL 05/06/18 21:00 06/05/18 20:59 Ondansetron HCl (Zofran) 4 mg Q6H PRN IVP Nausea & Vomiting 05/05/18 23:00 06/04/18 22:59 05/06/18 02:15 Pantoprazole (Protonix) 40 mg DAILY IVP 05/05/18 20:30 06/04/18 20:29 05/06/18 08:18 Sevelamer Carbonate (Renvela) 800 mg TIAC ORAL 05/06/18 11:30 06/05/18 11:29 Sodium Bicarbonate 50 ml/ Dextrose/Sodium Chloride 1,050 ml @ 75 mls/hr Q14H IV 05/05/18 21:30 06/04/18 21:29 05/06/18 00:20 Sodium Citrate (Bicitra) 30 ml EVERY 6 HOURS ORAL 05/06/18 12:00 06/05/18 11:59 05/06/18 13:10 GI: Plan Problems: (1) Anemia (2) Altered mental status (3) Autoimmune hepatitis Plan occult stool positive elevated troponin levels Pleur X present hold GI procedures at this time given elevated troponin levels, will require cardiac clearance if family agrees monitor H&H, prn transfusions >> 2 units today low dose lactulose + xifaxan ppi BID trend LFTs zofran prn ST evaluation when stable fu labs Discussed with Dr. Rosa. Thank you for this patient referral, we will follow. The patient was seen and examined at bedside and all new and available data was reviewed in the patients chart. I agree with the above findings, impression and plan. (Patient seen earlier today. Signature stamp does not reflect patient encounter time.). - MD Sophie Patino,[facility] [employer] May 06, 2018 13:24
--- NOTE | 2018-05-06 15:50 | Cardiology Report ---
APPROVED REPORT EKG Measurement Heart [id number] ID [id number] Normal sinus rhythm with sinus arrhythmia Normal ECG
[2018-05-06 17:03] VITALS: BP 120/60
[2018-05-06] MEDS: Docusate 100mg/10ml Liq ORAL SCH (17:12)
[2018-05-06] MEDS: cefTRIAXone 1 GM in D5W 55 ML IVPB SCH (17:13)
--- NOTE | 2018-05-06 18:15 | Consultation ---
DATE OF CONSULTATION: 05/06/2018 HEMATOLOGY/ONCOLOGY CONSULTATION CONSULTING PHYSICIAN: Schuyler Rogers M.D. REFERRING PHYSICIAN: Atilio Viera M.D. REASON FOR THE CONSULTATION: Evaluation of ongoing anemia as well as progressive pancytopenia. IDENTIFYING DATA: Dear Dr. Viera, The patient is a pleasant 87-year-old female with history of autoimmune hepatitis, , history of liver cirrhosis, diabetes mellitus, CAD, history of chronic kidney disease, and hemorrhoidal bleed, at this time, presents to the hospital, with episodes of nausea and vomiting, as well as worsening generalized weakness, and inability to tolerate home medication. The patient is a very poor historian, unable to provide any further history, comes in from home with indwelling Sosa catheter. According to the family members at the bedside, the urine output has been in the past. The patient's blood pressure was less than 100 in the ER and noted to be with lactic acidosis. Obtained verbal consent and the patient is admitted to the hospital at [facility] and noted to have progressive thrombocytopenia as well as anemia. Hematology service was consulted for further evaluation and treatment. PAST MEDICAL HISTORY: Anemia, hepatitis, liver cirrhosis, hemorrhoidal bleed, diabetes mellitus, CKD, CAD, and failure to thrive. PAST SURGICAL HISTORY: None known. MEDICATIONS: Reviewed. ALLERGIES: No known drug allergies. FAMILY HISTORY: Noncontributory. No heart disease. No alcohol. REVIEW OF SYSTEMS: CONSTITUTIONAL: No fever, chills, or night sweats. SKIN: No rashes, bumps, or itching. HEENT: No headache, hearing or visual changes. BREASTS: No lumps, pain, or discharge. PULMONARY: No cough, sputum, or shortness of breath. GASTROINTESTINAL: No nausea, vomiting, or diarrhea. GENITOURINARY: No dysuria, frequency, or urgency. MUSCULOSKELETAL: No joint swelling, muscle pain, or trauma. PHYSICAL EXAMINATION: VITAL SIGNS: Reviewed. GENERAL: No acute distress. PULMONARY: Decreased breath sounds. CARDIOVASCULAR: Regular rate. No S3 or S4. ABDOMEN: Soft, nontender, and nondistended. EXTREMITIES: A 1+ edema. LABORATORY DATA: 5.2, hemoglobin 7.5, and platelet count 42,000. Chemistry reviewed. BUN of 199 and creatinine of 16.5. Uric acid 17. Calcium 8.5. Albumin 3.8. . TSH is 0.775. The patient's reviewed. The patient's platelet count reviewed. ASSESSMENT AND RECOMMENDATIONS: 1. Severe pancytopenia, worsening likely secondary to liver cirrhosis and autoimmune hepatitis in addition to history of underlying cirrhosis of the liver, which has been chronic issue. At this time, transfuse if hemoglobin less than 7 and platelet count less than 20,000. Monitor lactic acidosis, on antibiotics. 2. Anemia due to underlying chronic disease. Continue to closely monitor. 3. Macrocytosis due to underlying splenomegaly and cirrhosis. 4. Acute kidney injury and chronic kidney disease. Closely monitor with Nephrology service. 5. 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 May need outpatient chelation therapy. 6. Hypercalcemia. Closely monitor for improvement. Keep on intravenous fluids. 7. Hyperuricemia. Nephrology service evaluation. 8. Liver cirrhosis, autoimmune hepatitis, and troponin leak. Further evaluation by Cardiology. I appreciate the consultation. Schuyler Rogers M.D. DR: VALERIE JOB#: [id number] CC:
[2018-05-06 20:18] VITALS: BP 95/47
--- NOTE | 2018-05-06 20:35 | Consultation ---
Consult Note Consult Note PCCM DATE: 05/06/18 REFERRING PHYSICIAN: Atilio Olson MD REASON FOR CONSULTATION: Hypoxemia HPI: 87 F h/o autoimmune hepatitis/cirrhosis, previously on hospice p/w AMS 2/2 UTI, LENI with met acidosis/LA. Also with anemia and thrombocytopenia. Has a PleurX catheter/abd. Initial plan for HD, however, family did not consent for cath. No hx obtainable from pt given AMS. No report of cough, congestion, wheezing or SOB. No F/C. + NV earlier PMH: CAD, DM, autoimmune hepatitis, cirrhosis, anemia, thrombocytopenia, CKD ALL: Clonidine Active Scripts Medications Dose Route/Sig Max Daily Dose Days Date Category Xifaxan* (Rifaximin) 550 Mg Tablet 550 Mg ORAL TWICE A DAY 30 05/06/18 Reported Lasix* (Furosemide) 40 Mg Tablet 40 Mg ORAL TWICE A DAY 05/06/18 Reported Xanax* (Alprazolam) 0.5 Mg Tablet 0.5 Mg PO TID PRN 05/06/18 Reported Lactulose 10 Gm/15 Ml Solution 30 Gm PO TID 05/06/18 Reported Nephro-Luis Tablet (Vitamin B Complex/Vit C/Folic Acid) 0.8 Mg Tablet 1 Tab ORAL DAILY 05/06/18 Reported Unable To Obtain Meds (Unable to Obtain Medications) 1 Ea Ea 05/05/18 Reported SHx: No T/E/D use FHx: N/C ROS: Unobtainable PE: Vital Sign - Last 24 Hours 05/05/18 05/05/18 05/05/18 05/05/18 21:00 22:05 22:44 22:44 Temp 97.6 97.8 97.6 Pulse 74 74 91 Resp 17 19 B/P (MAP) 96/53 99/53 Pulse Ox 98 98 O2 Delivery Room Air Room Air Nasal Cannula O2 Flow Rate 3.0 05/05/18 05/06/18 05/06/18 05/06/18 23:00 04:00 04:00 07:28 Temp 97.0 97.0 97.0 97.0 Pulse 91 79 88 Resp 20 20 B/P (MAP) 103/65 (78) 120/66 (84) Pulse Ox 94 94 O2 Delivery Nasal Cannula O2 Flow Rate 3.0 05/06/18 05/06/18 05/06/185/18 07:45 07:46 09:50 09:50 Pulse 88 86 Resp 20 B/P (MAP) 105/62 (76) Pulse Ox 94 O2 Delivery Nasal Cannula Nasal Cannula O2 Flow Rate 3.0 3.0 FiO2 32 32 05/06/18 05/06/18 05/06/18 05/06/18 11:40 12:00 16:15 17:03 Temp 97.0 97.0 97.0 97.0 Pulse 84 86 92 80 Resp 20 20 B/P (MAP) 115/60 (78) 120/60 (80) 05/06/18 05/06/18 05/06/18 19:41 19:41 20:18 Temp 96.5 96.5 Pulse 104 Resp 19 B/P (MAP) 95/47 (63) Pulse Ox 95 91 O2 Delivery Nasal Cannula Nasal Cannula O2 Flow Rate 3.0 3.0 FiO2 32 32 Intake and Output 05/05/18 05/05/18 05/06/18 15:00 23:00 07:00 Intake Total 75 ml Output Total 30 ml Balance -30 ml 75 ml Confused NC/AT OPC Supple BiB rales RRR S/NT/ND c NABS No C/C/E Laboratory Tests Test 05/06/18 03:53 05/06/18 06:05 05/06/18 07:53 05/06/18 10:10 White Blood Count 5.3 K/UL (4.8-10.8) Red Blood Count 2.21 M/UL (4.20-5.40) L Hemoglobin 7.5 G/DL (12.0-16.0) L Hematocrit 23.2 % (37.0-47.0) L Mean Corpuscular Volume 105 FL (80-99) H Mean Corpuscular Hemoglobin 33.8 PG (27.0-31.0) H Mean Corpuscular Hemoglobin Concent 32.2 G/DL (32.0-36.0) Red Cell Distribution Width 13.5 % (11.6-14.8) Platelet Count 42 K/UL (150-450) L Mean Platelet Volume 9.1 FL (6.5-10.1) Neutrophils (%) (Auto) % (45.0-75.0) Lymphocytes (%) (Auto) % (20.0-45.0) Monocytes (%) (Auto) % (1.0-10.0) Eosinophils (%) (Auto) % (0.0-3.0) Basophils (%) (Auto) % (0.0-2.0) Differential Total Cells Counted 100 Neutrophils % (Manual) 82 % (45-75) H Lymphocytes % (Manual) 2 % (20-45) L Monocytes % (Manual) 13 % (1-10) H Eosinophils % (Manual) 2 % (0-3) Basophils % (Manual) 1 % (0-2) Band Neutrophils 0 % (0-8) Platelet Estimate Decreased L Platelet Morphology Normal Hypochromasia 3+ Anisocytosis 1+ Macrocytosis 1+ Sodium Level 150 MMOL/L (136-145) H Potassium Level 4.2 MMOL/L (3.5-5.1) Chloride Level 107 MMOL/L (98-107) Carbon Dioxide Level 9 MMOL/L (21-32) *L Anion Gap 34 mmol/L (5-15) H Blood Urea Nitrogen 199 mg/dL (7-18) H Creatinine 16.5 MG/DL (0.55-1.30) H Estimat Glomerular Filtration Rate mL/min (>60) Glucose Level 156 MG/DL (74-106) H Hemoglobin A1c 5.6 % (4.3-6.0) Lactic Acid Level 7.70 mmol/L (0.4-2.0) H 6.40 mmol/L (0.66-2.22) H Uric Acid 17.1 MG/DL (2.6-7.2) H Calcium Level 8.5 MG/DL (8.5-10.1) Phosphorus Level 17.7 MG/DL (2.5-4.9) H Magnesium Level 2.6 MG/DL (1.8-2.4) H Iron Level 70 ug/dL (50-175) Total Iron Binding Capacity 72 ug/dL (250-450) L Percent Iron Saturation 97 % (15-50) H Unsaturated Iron Binding 2 ug/dL (112-346) L Ferritin 734 NG/ML (8-388) H Total Bilirubin 0.9 MG/DL (0.2-1.0) Gamma Glutamyl Transpeptidase 67 U/L (5-85) Aspartate Amino Transf (AST/SGOT) 28 U/L (15-37) Alanine Aminotransferase (ALT/SGPT) 18 U/L (12-78) Alkaline Phosphatase 112 U/L (46-116) Ammonia < 10 umol/L (11-32) L Total Creatine Kinase 240 U/L (26-308) Troponin I 0.747 ng/mL (0.000-0.056) C-Reactive Protein, Quantitative 2.5 mg/dL (0.00-0.90) H Pro-B-Type Natriuretic Peptide 6796 pg/mL (0-125) H Total Protein 6.7 G/DL (6.4-8.2) Albumin 2.8 G/DL (3.4-5.0) L Globulin 3.9 g/dL Albumin/Globulin Ratio 0.7 (1.0-2.7) L Triglycerides Level 148 MG/DL (30-150) Cholesterol Level 134 MG/DL (< 200) LDL Cholesterol 92 mg/dL (<100) HDL Cholesterol 15 MG/DL (40-60) L Cholesterol/HDL Ratio 8.9 (3.3-4.4) H Lipase 1304 U/L (73-393) H Vitamin B12 Level > 2000 PG/ML (193-986) H Folate 65.4 NG/ML (8.6-58.9) H Thyroid Stimulating Hormone (TSH) 0.775 uiU/mL (0.358-3.740) Cortisol AM Sample Pending Stool Occult Blood Positive (NEGATIVE) Hepatitis A IgM Antibody Pending Hepatitis B Surface Antigen Pending Hepatitis B Core IgM Antibody Pending Hepatitis C Antibody Pending HIV (1&2) Antibody Rapid Negative (NEGATIVE) Prothrombin Time 18.1 SEC (9.30-11.50) H Prothromb Time International Ratio 1.8 (0.9-1.1) H Activated Partial Thromboplast Time 55 SEC (23-33) H CXR: NAD Assessment/Plan Hypoxemia in the setting of cirrhosis, LENI LENI on CKD UTI Decompensated cirrhosis FOBT + Autoimmune hepatitis Abd PleurX Pancytopenia AMS NSTEMI PLAN: ABG HD if family amenable PRN PleurX drainage Monitor counts, transfuse PRN Monitor MS Discuss GOC, DNAR, consider transition to a more comfort based approach Hemanth Gee MD May 06, 2018 20:35
--- NOTE | 2018-05-06 21:15 | Consultation ---
DATE OF CONSULTATION: 05/06/2018 INFECTIOUS DISEASE CONSULTATION CONSULTING PHYSICIAN: Shadi Spencer M.D. PRIMARY ATTENDING PHYSICIAN: Atilio Viera M.D. REASON FOR CONSULT: UTI. HISTORY OF PRESENT ILLNESS: The patient is an 87-year-old, female admitted from home yesterday because of weakness and vomiting. The patient has cirrhosis secondary to autoimmune hepatitis and was on hospice. The patient does not make urine in the past two days, cannot take medication including lactulose. PAST MEDICAL HISTORY: Diabetes mellitus, autoimmune hepatitis, cirrhosis, cachexia, anemia and has history of GI bleeding secondary to hemorrhoids. The patient have rapid decline since couple of months ago. ALLERGIES: To codeine. MEDICATIONS: Allopurinol, Zyprexa, Colace, sodium chloride, metoclopramide, Tylenol, Protonix, and a dose of ceftriaxone yesterday. SOCIAL HISTORY: Lives at home with daughter. . No history of alcohol, drug abuse, or smoking. REVIEW OF SYSTEMS: The patient is complaining of hip pain. PHYSICAL EXAMINATION: GENERAL APPEARANCE: Very cachectic. VITAL SIGNS: Temperature 97 degrees, pulse 86, and blood pressure 105/62. HEAD AND NECK: Poor dentition. HEART: Regular. LUNGS: Clear. ABDOMEN: Soft. Mild ascites. EXTREMITY: She has no edema. She has severe muscle atrophy. NEUROLOGIC: Awake, alert, verbal at the time of examination. LABORATORY AND DIAGNOSTIC DATA: Sodium 150, potassium 4.2, BUN 99, creatinine 16.5 and glucose 156. Troponin was elevated 0.727. WBC 5.3, hemoglobin 7.5, hematocrit 23.2, and platelet 42. UA showed nitrite positive, wbc's 20 to 30, and bacteria many. Chest x-ray negative. CT scan of the head chronic age-related changes. IMPRESSION: 1. Pyuria may have UTI. 2. Autoimmune hepatitis and cirrhosis. 3. Diabetes mellitus. 4. Acute renal failure. 5. Chronic kidney disease. 6. Anemia. 7. Thrombocytopenia. RECOMMENDATION: She is to continue ceftriaxone. We will followup urine culture. Prognosis is very poor and the family are deciding about home hospice. At the end of my exam, I thank Dr. Viera for involving me in the care of this patient. Shadi Spencer M.D. DR: GRISELDA JOB#: [id number] CC: NUZHAT
[2018-05-07] MEDS: OLANZapine 2.5mg tab ORAL PRN (00:22)
[2018-05-07 00:39] VITALS: BP 133/59
[2018-05-07] MEDS: Sodium Bicarbonate 50 ML in D5 1/2NS 1,000 ML IV SCH (02:33)
[2018-05-07 04:33] VITALS: BP 147/84
[2018-05-07] MEDS: Sodium Citrate 30ml ORAL SCH ×6 (06:00→23:13)
--- NOTE | 2018-05-07 06:15 | History and Physical Report ---
DATE OF ADMISSION: 05/05/2018 NOTE: "POOR AUDIO QUALITY/AUDIO BREAKS" HISTORY OF PRESENT ILLNESS: The patient is admitted for hypoxia, weakness severe renal failure. The patient has history of autoimmune-induced cirrhosis. The patient has end-stage renal disease, however, the family did not want to be on dialysis. The son also had her on hospice, however, they removed her from hospice. The patient is here because of altered mental status/lethargy. All the history is obtained from the son, the DPBEBO. PAST MEDICAL HISTORY: end-stage renal disease, however, not on dialysis , CHF, hypertension, hyperlipidemia, history of . MEDICATIONS: Xanax p.r.n. FAMILY HISTORY: Noncontributory. SOCIAL HISTORY: REVIEW OF SYSTEMS: Unable to obtain. PHYSICAL EXAMINATION: VITAL SIGNS: Temperature 97 degrees, pulse 86, and blood pressure 115/60. HEENT: PERRLA. NECK: Supple. No lymphadenopathy. CHEST: Clear to auscultation. CARDIOVASCULAR: Regular rate and rhythm. ABDOMEN: Soft. Positive bowel sounds. The patient has weight loss. NEUROLOGIC: Reflexes equal on both sides. The patient is able to follow commands. The patient is lethargic. LABORATORY DATA: WBC of 7.3, hemoglobin 9.1, and platelets 63,000. Troponin 0.745. ____ BUN was 196, creatinine was 16.6 initially per the ER doctor. ASSESSMENT: 1. End-stage renal disease. 2. Acute renal failure. 3. Autoimmune cirrhosis. 4. CHF. 5. The patient wants her to be chemical code only, off hospice. PLAN: I have asked Dr. Gee, Dr. Gross, Dr. Shadi Spencer, Dr. Medley, Dr. Meyer, and Dr. Rosa to the patient towards the management and treatment of the above-mentioned diagnoses. The patient is DNR. Atilio Viera M.D. DR: Keysha JOB#: [id number] CC:
[2018-05-07 06:59] LABS: HEMATOCRIT 37.3 % (37.0-47.0); HEMOGLOBIN 12.5 G/DL (12.0-16.0); MEAN CORPUSCULAR VOLUME 96 FL (80-99); PLATELET COUNT 39 K/UL (150-450); RED BLOOD COUNT 3.88 M/UL (4.20-5.40); RED CELL DISTRIBUTION WIDTH 15.1 % (11.6-14.8); WHITE BLOOD COUNT 6.7 K/UL (4.8-10.8)
[2018-05-07 07:25] LABS: ALANINE AMINOTRANSFERASE 22 U/L (12-78); ALBUMIN 2.6 G/DL (3.4-5.0); ALBUMIN/GLOBULIN RATIO 0.6 (1.0-2.7); ALKALINE PHOSPHATASE 117 U/L (46-116); ANION GAP 25 mmol/L (5-15); ASPARTATE AMINO TRANSFERASE 29 U/L (15-37); BILIRUBIN,TOTAL 1.1 MG/DL (0.2-1.0); BLOOD UREA NITROGEN 191 mg/dL (7-18); CALCIUM 7.9 MG/DL (8.5-10.1); CARBON DIOXIDE 17 MMOL/L (21-32); CHLORIDE 106 MMOL/L (98-107); CREATININE 15.4 MG/DL (0.55-1.30); POTASSIUM 3.7 MMOL/L (3.5-5.1); SODIUM 148 MMOL/L (136-145)
[2018-05-07 08:00] VITALS: BP 134/77
[2018-05-07 08:16] LABS: BILIRUBIN,DIRECT 0.4 MG/DL (0.0-0.3)
[2018-05-07] MEDS: Docusate 100mg/10ml Liq ORAL SCH ×3 (09:00→17:12)
[2018-05-07] MEDS: Pantoprazole Inj IVP SCH (09:29)
[2018-05-07] MEDS ORDERED: Lactulose 20gm/30ml UDC ORAL SCH (10:00)
--- NOTE | 2018-05-07 10:39 | GI Progress Note ---
Assessment/Plan Problems: (1) Autoimmune hepatitis ICD Codes: K75.4 - Autoimmune hepatitis SNOMED: 626179963 (2) Altered mental status ICD Codes: R41.82 - Altered mental status, unspecified SNOMED: 038173560 (3) Anemia ICD Codes: D64.9 - Anemia, unspecified SNOMED: 150555390 (4) Episode of generalized weakness ICD Codes: R53.1 - Weakness SNOMED: 63483321 (5) Renal failure ICD Codes: N19 - Unspecified kidney failure SNOMED: 12842019 Status: stable Status Narrative Discussed with Dr. Rosa. Assessment/Plan occult stool positive elevated troponin levels Pleur X present hold GI procedures at this time given elevated troponin levels, will require cardiac clearance if family agrees monitor H&H, prn transfusions >> 2 units today send addition OB stool low dose lactulose 10mg + xifaxan ppi BID trend LFTs zofran prn ST evaluation when stable fu labs The patient was seen and examined at bedside and all new and available data was reviewed in the patients chart. I agree with the above findings, impression and plan. (Patient seen earlier today. Signature stamp does not reflect patient encounter time.). - Jesse Rosa MD Subjective Gastrointestinal/Abdominal: Reports: abdomen distended, abdominal pain Objective Last 24 Hour Vital Signs Date Time Temp Pulse Resp B/P (MAP) Pulse Ox O2 Delivery O2 Flow Rate FiO2 05/07/18 09:00 Nasal Cannula 2.0 05/07/18 08:00 96.6 91 16 134/77 (96) 94 96.6 05/07/18 08:00 108 05/07/18 04:33 95.5 64 16 147/84 (105) 97 95.5 05/07/18 04:00 92 05/07/18 00:39 97.5 91 16 133/59 (83) 95 97.5 05/07/18 00:00 92 05/06/18 21:00 Nasal Cannula 2.0 05/06/18 20:18 96.5 104 19 95/47 (63) 91 96.5 05/06/18 20:00 93 05/06/18 19:41 95 Nasal Cannula 3.0 32 05/06/18 19:41 Nasal Cannula 3.0 32 05/06/18 17:03 97.0 80 20 120/60 (80) 97.0 05/06/18 16:15 92 05/06/18 12:00 97.0 86 20 115/60 (78) 97.0 05/06/18 11:40 84 Intake and Output 05/06/18 05/07/18 19:00 07:00 Intake Total 350 ml 909 ml Balance 350 ml 909 ml Intake Oral 50 ml 50 ml IV Total 300 ml 859 ml # Voids 1 # Bowel Movements 2 Laboratory Tests Test 05/06/18 20:40 05/07/18 06:25 05/07/18 10:20 Arterial Blood pH 7.220 (7.350-7.450) Arterial Blood Partial Pressure CO2 29.0 mmHg (35.0-45.0) L Arterial Blood Partial Pressure O2 222.1 mmHg (75.0-100.0) H Arterial Blood HCO3 11.6 mmol/L (22.0-26.0) L Arterial Blood Oxygen Saturation 98.6 % (92.0-98.0) H Arterial Blood Base Excess -14.7 Rbo Test Positive White Blood Count 6.7 K/UL (4.8-10.8) Red Blood Count 3.88 M/UL (4.20-5.40) L Hemoglobin 12.5 G/DL (12.0-16.0) # Hematocrit 37.3 % (37.0-47.0) # Mean Corpuscular Volume 96 FL (80-99) # Mean Corpuscular Hemoglobin 32.1 PG (27.0-31.0) H Mean Corpuscular Hemoglobin Concent 33.4 G/DL (32.0-36.0) Red Cell Distribution Width 15.1 % (11.6-14.8) H Platelet Count 39 K/UL (150-450) L Mean Platelet Volume 7.0 FL (6.5-10.1) Neutrophils (%) (Auto) % (45.0-75.0) Lymphocytes (%) (Auto) % (20.0-45.0) Monocytes (%) (Auto) % (1.0-10.0) Eosinophils (%) (Auto) % (0.0-3.0) Basophils (%) (Auto) % (0.0-2.0) Differential Total Cells Counted 100 Neutrophils % (Manual) 83 % (45-75) H Lymphocytes % (Manual) 5 % (20-45) L Monocytes % (Manual) 12 % (1-10) H Eosinophils % (Manual) 0 % (0-3) Basophils % (Manual) 0 % (0-2) Band Neutrophils 0 % (0-8) Platelet Estimate Decreased L Platelet Morphology Normal Red Blood Cell Morphology Normal Sodium Level 148 MMOL/L (136-145) H Potassium Level 3.7 MMOL/L (3.5-5.1) Chloride Level 106 MMOL/L (98-107) Carbon Dioxide Level 17 MMOL/L (21-32) L Anion Gap 25 mmol/L (5-15) H Blood Urea Nitrogen 191 mg/dL (7-18) H Creatinine 15.4 MG/DL (0.55-1.30) H Estimat Glomerular Filtration Rate mL/min (>60) Glucose Level 239 MG/DL (74-106) H Lactic Acid Level 4.40 mmol/L (0.4-2.0) H Pending Uric Acid 15.9 MG/DL (2.6-7.2) H Calcium Level 7.9 MG/DL (8.5-10.1) L Phosphorus Level 16.0 MG/DL (2.5-4.9) H Magnesium Level 2.5 MG/DL (1.8-2.4) H Total Bilirubin 1.1 MG/DL (0.2-1.0) H Direct Bilirubin 0.4 MG/DL (0.0-0.3) H Aspartate Amino Transf (AST/SGOT) 29 U/L (15-37) Alanine Aminotransferase (ALT/SGPT) 22 U/L (12-78) Alkaline Phosphatase 117 U/L (46-116) H Ammonia 26 umol/L (11-32) Troponin I 1.047 ng/mL (0.000-0.056) Pro-B-Type Natriuretic Peptide 7924 pg/mL (0-125) H Total Protein 6.8 G/DL (6.4-8.2) Albumin 2.6 G/DL (3.4-5.0) L Globulin 4.2 g/dL Albumin/Globulin Ratio 0.6 (1.0-2.7) L Height (Feet): 5 Height (Inches): 2.00 Weight (Pounds): 114 General Appearance: no apparent distress, alert, confused, thin Cardiovascular: normal rate Respiratory/Chest: normal breath sounds, no respiratory distress Abdominal Exam: normal bowel sounds, non tender, soft Extremities: non-tender Mónica Barrios NP May 07, 2018 10:39
--- NOTE | 2018-05-07 11:00 | Infectious Diseases Prog Note ---
Assessment/Plan Assessment/Plan A: 1. Pyuria may have UTI. 2. Autoimmune hepatitis and cirrhosis. 3. Diabetes mellitus. 4. Acute renal failure. 5. Chronic kidney disease. 6. Anemia. s/p blood transfusion 7. Thrombocytopenia. P: Continue Rocephin Will f/u cultures Case was D/W family at bedside Subjective ROS Limited/Unobtainable: Yes Allergies: Coded Allergies: CLONIDINE (Unverified Allergy, Mild, Rash, 05/06/18) clonidine patch* Objective Vital Signs Last 24 Hour Vital Signs Date Time Temp Pulse Resp B/P (MAP) Pulse Ox O2 Delivery O2 Flow Rate FiO2 05/07/18 09:00 Nasal Cannula 2.0 05/07/18 08:00 96.6 91 16 134/77 (96) 94 96.6 05/07/18 08:00 108 05/07/18 04:33 95.5 64 16 147/84 (105) 97 95.5 05/07/18 04:00 92 05/07/18 00:39 97.5 91 16 133/59 (83) 95 97.5 05/07/18 00:00 92 05/06/18 21:00 Nasal Cannula 2.0 05/06/18 20:18 96.5 104 19 95/47 (63) 91 96.5 05/06/18 20:00 93 05/06/18 19:41 95 Nasal Cannula 3.0 32 05/06/18 19:41 Nasal Cannula 3.0 32 05/06/18 17:03 97.0 80 20 120/60 (80) 97.0 05/06/18 16:15 92 05/06/18 12:00 97.0 86 20 115/60 (78) 97.0 05/06/18 11:40 84 Height (Feet): 5 Height (Inches): 2.00 Weight (Pounds): 114 General Appearance: cachetic HEENT: mucous membranes moist Respiratory/Chest: lungs clear Cardiovascular: tachycardia Abdomen: distended Extremities: no edema Neurologic/Psychiatric: other - sleeping Musculoskeletal: atrophy Microbiology Date/Time Source Procedure Growth Status 05/05/18 16:15 Blood Blood Culture - Preliminary NO GROWTH AFTER 24 HOURS Resulted 05/05/18 16:00 Blood Blood Culture - Preliminary NO GROWTH AFTER 24 HOURS Resulted 05/05/18 16:17 Urine,Clean Catch Urine Culture - Preliminary Resulted Laboratory Tests Test 05/06/18 20:40 05/07/18 06:25 05/07/18 10:20 Arterial Blood pH 7.220 (7.350-7.450) Arterial Blood Partial Pressure CO2 29.0 mmHg (35.0-45.0) L Arterial Blood Partial Pressure O2 222.1 mmHg (75.0-100.0) H Arterial Blood HCO3 11.6 mmol/L (22.0-26.0) L Arterial Blood Oxygen Saturation 98.6 % (92.0-98.0) H Arterial Blood Base Excess -14.7 Bro Test Positive White Blood Count 6.7 K/UL (4.8-10.8) Red Blood Count 3.88 M/UL (4.20-5.40) L Hemoglobin 12.5 G/DL (12.0-16.0) # Hematocrit 37.3 % (37.0-47.0) # Mean Corpuscular Volume 96 FL (80-99) # Mean Corpuscular Hemoglobin 32.1 PG (27.0-31.0) H Mean Corpuscular Hemoglobin Concent 33.4 G/DL (32.0-36.0) Red Cell Distribution Width 15.1 % (11.6-14.8) H Platelet Count 39 K/UL (150-450) L Mean Platelet Volume 7.0 FL (6.5-10.1) Neutrophils (%) (Auto) % (45.0-75.0) Lymphocytes (%) (Auto) % (20.0-45.0) Monocytes (%) (Auto) % (1.0-10.0) Eosinophils (%) (Auto) % (0.0-3.0) Basophils (%) (Auto) % (0.0-2.0) Differential Total Cells Counted 100 Neutrophils % (Manual) 83 % (45-75) H Lymphocytes % (Manual) 5 % (20-45) L Monocytes % (Manual) 12 % (1-10) H Eosinophils % (Manual) 0 % (0-3) Basophils % (Manual) 0 % (0-2) Band Neutrophils 0 % (0-8) Platelet Estimate Decreased L Platelet Morphology Normal Red Blood Cell Morphology Normal Sodium Level 148 MMOL/L (136-145) H Potassium Level 3.7 MMOL/L (3.5-5.1) Chloride Level 106 MMOL/L (98-107) Carbon Dioxide Level 17 MMOL/L (21-32) L Anion Gap 25 mmol/L (5-15) H Blood Urea Nitrogen 191 mg/dL (7-18) H Creatinine 15.4 MG/DL (0.55-1.30) H Estimat Glomerular Filtration Rate mL/min (>60) Glucose Level 239 MG/DL (74-106) H Lactic Acid Level 4.40 mmol/L (0.4-2.0) H Pending Uric Acid 15.9 MG/DL (2.6-7.2) H Calcium Level 7.9 MG/DL (8.5-10.1) L Phosphorus Level 16.0 MG/DL (2.5-4.9) H Magnesium Level 2.5 MG/DL (1.8-2.4) H Total Bilirubin 1.1 MG/DL (0.2-1.0) H Direct Bilirubin 0.4 MG/DL (0.0-0.3) H Aspartate Amino Transf (AST/SGOT) 29 U/L (15-37) Alanine Aminotransferase (ALT/SGPT) 22 U/L (12-78) Alkaline Phosphatase 117 U/L (46-116) H Ammonia 26 umol/L (11-32) Troponin I 1.047 ng/mL (0.000-0.056) Pro-B-Type Natriuretic Peptide 7924 pg/mL (0-125) H Total Protein 6.8 G/DL (6.4-8.2) Albumin 2.6 G/DL (3.4-5.0) L Globulin 4.2 g/dL Albumin/Globulin Ratio 0.6 (1.0-2.7) L Current Medications Medications (Trade) Dose Ordered Sig/Dean Route PRN Reason Start Time Stop Time Status Last Admin Dose Admin Acetaminophen (Tylenol) 650 mg Q4H PRN GT MILD PAIN AND TEMP 05/05/18 23:15 06/04/18 23:14 05/05/18 23:41 Allopurinol (Allopurinol) 300 mg DAILY ORAL 05/07/18 09:00 06/06/18 08:59 05/07/18 09:29 Ceftriaxone Sodium 1 gm/ Dextrose 55 ml @ 110 mls/hr Q24H IVPB 05/06/18 18:00 05/13/18 17:59 05/06/18 17:13 Docusate Sodium (Colace) 100 mg THREE TIMES A DAY ORAL 05/06/18 18:00 06/05/18 17:59 05/06/18 17:12 Lactulose (Cephulac) 10 gm ONCE ORAL 05/07/18 10:00 05/07/18 11:00 05/07/18 10:26 Lactulose (Cephulac) 10 gm THREE TIMES A DAY ORAL 05/07/18 13:00 06/06/18 12:59 Metoclopramide HCl (Reglan) 10 mg Q6H PRN IVP Nausea & Vomiting 05/06/18 09:09 06/05/18 09:08 Olanzapine (ZyPREXA) 2.5 mg Q6H PRN ORAL Agitation 05/06/18 11:45 06/05/18 11:44 05/07/18 00:22 Olanzapine (ZyPREXA) 5 mg BEDTIME ORAL 05/06/18 21:00 06/05/18 20:59 05/06/18 20:28 Ondansetron HCl (Zofran) 4 mg Q6H PRN IVP Nausea & Vomiting 05/05/18 23:00 06/04/18 22:59 05/06/18 02:15 Pantoprazole (Protonix) 40 mg DAILY IVP 05/05/18 20:30 06/04/18 20:29 05/07/18 09:29 Rifaximin (Xifaxan) 550 mg EVERY 12 HOURS ORAL 05/06/18 21:00 05/13/18 20:59 05/07/18 09:29 Sevelamer Carbonate (Renvela) 800 mg TIAC ORAL 05/06/18 11:30 06/05/18 11:29 05/07/18 06:29 Sodium Bicarbonate 50 ml/ Dextrose/Sodium Chloride 1,050 ml @ 75 mls/hr Q14H IV 05/05/18 21:30 06/04/18 21:29 05/07/18 02:33 Sodium Citrate (Bicitra) 30 ml EVERY 6 HOURS ORAL 05/06/18 12:00 06/05/18 11:59 05/06/18 17:12 Shadi Spencer MD May 07, 2018 11:00
--- NOTE | 2018-05-07 11:12 | General Progress Note ---
Assessment/Plan Status: stable Assessment/Plan [place] [facility] [place] zyprexa -seroquel 50mg qhs -seroquel prn -xanax .25mg qhs Subjective Date patient seen: May 07, 2018 Neurologic/Psychiatric: Reports: anxiety, depressed, emotional problems Allergies: Coded Allergies: CLONIDINE (Unverified Allergy, Mild, Rash, 05/06/18) clonidine patch* Objective Last 24 Hour Vital Signs Date Time Temp Pulse Resp B/P (MAP) Pulse Ox O2 Delivery O2 Flow Rate FiO2 05/07/18 09:00 Nasal Cannula 2.0 05/07/18 08:00 96.6 91 16 134/77 (96) 94 96.6 05/07/18 08:00 108 05/07/18 04:33 95.5 64 16 147/84 (105) 97 95.5 05/07/18 04:00 92 05/07/18 00:39 97.5 91 16 133/59 (83) 95 97.5 05/07/18 00:00 92 05/06/18 21:00 Nasal Cannula 2.0 05/06/18 20:18 96.5 104 19 95/47 (63) 91 96.5 05/06/18 20:00 93 05/06/18 19:41 95 Nasal Cannula 3.0 32 05/06/18 19:41 Nasal Cannula 3.0 32 05/06/18 17:03 97.0 80 20 120/60 (80) 97.0 05/06/18 16:15 92 05/06/18 12:00 97.0 86 20 115/60 (78) 97.0 05/06/18 11:40 84 Intake and Output 05/06/18 05/07/18 19:00 07:00 Intake Total 350 ml 909 ml Balance 350 ml 909 ml Intake Oral 50 ml 50 ml IV Total 300 ml 859 ml # Voids 1 # Bowel Movements 2 Laboratory Tests 05/06/18 20:40: Arterial Blood pH 7.220*L, Arterial Blood Partial Pressure CO2 29.0L, Arterial Blood Partial Pressure O2 222.1H, Arterial Blood HCO3 11.6L, Arterial Blood Oxygen Saturation 98.6H, Arterial Blood Base Excess -14.7, Bro Test Positive 05/07/18 06:25: White Blood Count 6.7, Red Blood Count 3.88L, Hemoglobin 12.5#, Hematocrit 37.3# , Mean Corpuscular Volume 96#, Mean Corpuscular Hemoglobin 32.1H, Mean Corpuscular Hemoglobin Concent 33.4, Red Cell Distribution Width 15.1H, Platelet Count 39L, Mean Platelet Volume 7.0, Neutrophils (%) (Auto) , Lymphocytes (%) (Auto) , Monocytes (%) (Auto) , Eosinophils (%) (Auto) , Basophils (%) (Auto) , Differential Total Cells Counted 100, Neutrophils % ( Manual) 83H, Lymphocytes % (Manual) 5L, Monocytes % (Manual) 12H, Eosinophils % (Manual) 0, Basophils % (Manual) 0, Band Neutrophils 0, Platelet Estimate DecreasedL, Platelet Morphology Normal, Red Blood Cell Morphology Normal, Sodium Level 148H, Potassium Level 3.7, Chloride Level 106, Carbon Dioxide Level 17L, Anion Gap 25H, Blood Urea Nitrogen 191H, Creatinine 15.4H, Estimat Glomerular Filtration Rate , Glucose Level 239H, Lactic Acid Level 4.40H, Uric Acid 15.9H, Calcium Level 7.9L, Phosphorus Level 16.0H, Magnesium Level 2.5H, Total Bilirubin 1.1H, Direct Bilirubin 0.4H, Aspartate Amino Transf (AST/SGOT) 29, Alanine Aminotransferase (ALT/SGPT) 22, Alkaline Phosphatase 117H, Ammonia 26, Troponin I 1.047H, Pro-B-Type Natriuretic Peptide 7924H, Total Protein 6.8, Albumin 2.6L, Globulin 4.2, Albumin/Globulin Ratio 0.6L 05/07/18 10:20: Lactic Acid Level [Pending] Height (Feet): 5 Height (Inches): 2.00 Weight (Pounds): 114 General Appearance: no apparent distress, alert, confused Neurologic: depressed affect Yann Gross MD May 07, 2018 11:12
[2018-05-07 12:00] VITALS: BP 133/78
--- NOTE | 2018-05-07 12:49 | Nephrology Progress Note ---
Assessment/Plan Problem List: (1) Acute renal failure (ARF) (2) Urinary retention (3) Anemia (4) UTI (urinary tract infection) (5) Altered mental status (6) Autoimmune hepatitis Assessment acute on chronic renal failure- Patient has urinary retention now Anemia was on Hospice, but taken off family agree with no chest compression and intubation UTI Cachexia metabolic acidosis : High lactate and Uremia Plan dialysis cath and dialysis first was agreed on, then declined by family josue, could not be inserted by RNs- Uro eval pending transfusion per orders poor prognosis Subjective ROS Limited/Unobtainable: No Constitutional: Reports: weakness Objective Objective Last 24 Hour Vital Signs Date Time Temp Pulse Resp B/P (MAP) Pulse Ox O2 Delivery O2 Flow Rate FiO2 05/07/18 12:00 96.8 104 16 133/78 (96) 94 96.8 05/07/18 09:00 Nasal Cannula 2.0 05/07/18 08:00 96.6 91 16 134/77 (96) 94 96.6 05/07/18 08:00 108 05/07/18 04:33 95.5 64 16 147/84 (105) 97 95.5 05/07/18 04:00 92 05/07/18 00:39 97.5 91 16 133/59 (83) 95 97.5 05/07/18 00:00 92 05/06/18 21:00 Nasal Cannula 2.0 05/06/18 20:18 96.5 104 19 95/47 (63) 91 96.5 05/06/18 20:00 93 05/06/18 19:41 95 Nasal Cannula 3.0 32 05/06/18 19:41 Nasal Cannula 3.0 32 05/06/18 17:03 97.0 80 20 120/60 (80) 97.0 05/06/18 16:15 92 Intake and Output 05/06/18 05/07/18 19:00 07:00 Intake Total 350 ml 909 ml Balance 350 ml 909 ml Intake Oral 50 ml 50 ml IV Total 300 ml 859 ml # Voids 1 # Bowel Movements 2 Laboratory Tests 05/06/18 20:40: Arterial Blood pH 7.220*L, Arterial Blood Partial Pressure CO2 29.0L, Arterial Blood Partial Pressure O2 222.1H, Arterial Blood HCO3 11.6L, Arterial Blood Oxygen Saturation 98.6H, Arterial Blood Base Excess -14.7, Bro Test Positive 05/07/18 06:25: White Blood Count 6.7, Red Blood Count 3.88L, Hemoglobin 12.5#, Hematocrit 37.3# , Mean Corpuscular Volume 96#, Mean Corpuscular Hemoglobin 32.1H, Mean Corpuscular Hemoglobin Concent 33.4, Red Cell Distribution Width 15.1H, Platelet Count 39L, Mean Platelet Volume 7.0, Neutrophils (%) (Auto) , Lymphocytes (%) (Auto) , Monocytes (%) (Auto) , Eosinophils (%) (Auto) , Basophils (%) (Auto) , Differential Total Cells Counted 100, Neutrophils % ( Manual) 83H, Lymphocytes % (Manual) 5L, Monocytes % (Manual) 12H, Eosinophils % (Manual) 0, Basophils % (Manual) 0, Band Neutrophils 0, Platelet Estimate DecreasedL, Platelet Morphology Normal, Red Blood Cell Morphology Normal, Sodium Level 148H, Potassium Level 3.7, Chloride Level 106, Carbon Dioxide Level 17L, Anion Gap 25H, Blood Urea Nitrogen 191H, Creatinine 15.4H, Estimat Glomerular Filtration Rate , Glucose Level 239H, Lactic Acid Level 4.40H, Uric Acid 15.9H, Calcium Level 7.9L, Phosphorus Level 16.0H, Magnesium Level 2.5H, Total Bilirubin 1.1H, Direct Bilirubin 0.4H, Aspartate Amino Transf (AST/SGOT) 29, Alanine Aminotransferase (ALT/SGPT) 22, Alkaline Phosphatase 117H, Ammonia 26, Troponin I 1.047H, Pro-B-Type Natriuretic Peptide 7924H, Total Protein 6.8, Albumin 2.6L, Globulin 4.2, Albumin/Globulin Ratio 0.6L 05/07/18 10:20: Lactic Acid Level 4.10H Height (Feet): 5 Height (Inches): 2.00 Weight (Pounds): 114 General Appearance: lethargic, confused Cardiovascular: tachycardia Respiratory/Chest: decreased breath sounds Abdomen: distended Gage Medley MD May 07, 2018 12:49
[2018-05-07] MEDS: Lactulose 10gm/15ml UDC ORAL SCH ×2 (13:06→17:12)
[2018-05-07 16:00] VITALS: BP 143/78
--- NOTE | 2018-05-07 16:12 | Diagnostic Imaging Report ---
Indication:Lower abdominal and pelvic pain Technique: Grayscale and duplex Doppler imaging of the kidneys and pelvis performed utilizing a transabdominal scan. Patient refused the endovaginal exam. Comparison: None Findings: The kidneys are echogenic both measuring between 8 and 9 cm. There is no hydronephrosis. Few cysts are noted. There is a Sosa catheter present with the bladder completely nondistended. Moderate ascites demonstrated. Surgical absence of the uterus demonstrated. Negative ovary identified. IMPRESSION: Medical renal disease. No evidence of obstruction. Sosa catheter Ascites
--- NOTE | 2018-05-07 16:42 | Pulmonology Progress Note ---
Assessment/Plan Assessment/Plan Hypoxemia in the setting of cirrhosis, LENI LENI on CKD UTI Decompensated cirrhosis FOBT + Autoimmune hepatitis Abd PleurX Pancytopenia AMS NSTEMI PLAN: Declines HD PRN PleurX drainage Monitor counts, transfuse PRN Monitor MS F/U renal recs eval given urinary retention and inability to place a FC Discuss GOC, DNAR, consider transition to a more comfort based approach Subjective Allergies: Coded Allergies: CLONIDINE (Unverified Allergy, Mild, Rash, 05/06/18) clonidine patch* Subjective Family refused HD T 95, VSS, HCO3 17 No hx obtainable from pt No report of cough, no SOB Objective Last 24 Hour Vital Signs Date Time Temp Pulse Resp B/P (MAP) Pulse Ox O2 Delivery O2 Flow Rate FiO2 05/07/18 12:00 96.8 104 16 133/78 (96) 94 96.8 05/07/18 12:00 100 05/07/18 09:00 Nasal Cannula 2.0 05/07/18 08:00 96.6 91 16 134/77 (96) 94 96.6 05/07/18 08:00 108 05/07/18 04:33 95.5 64 16 147/84 (105) 97 95.5 05/07/18 04:00 92 05/07/18 00:39 97.5 91 16 133/59 (83) 95 97.5 05/07/18 00:00 92 05/06/18 21:00 Nasal Cannula 2.0 05/06/18 20:18 96.5 104 19 95/47 (63) 91 96.5 05/06/18 20:00 93 05/06/18 19:41 95 Nasal Cannula 3.0 32 05/06/18 19:41 Nasal Cannula 3.0 32 05/06/18 17:03 97.0 80 20 120/60 (80) 97.0 Intake and Output 05/06/18 05/07/18 19:00 07:00 Intake Total 350 ml 909 ml Balance 350 ml 909 ml Intake Oral 50 ml 50 ml IV Total 300 ml 859 ml # Voids 1 # Bowel Movements 2 General Appearance: cachetic HEENT: normocephalic, atraumatic, anicteric, mucous membranes moist Respiratory/Chest: chest wall non-tender, lungs clear, normal breath sounds, no respiratory distress Cardiovascular: normal peripheral pulses, normal rate, regular rhythm Abdomen: normal bowel sounds, soft, non tender, no organomegaly, non distended , no mass Extremities: no cyanosis, no clubbing, no edema Microbiology Date/Time Source Procedure Growth Status 05/05/18 16:15 Blood Blood Culture - Preliminary NO GROWTH AFTER 24 HOURS Resulted 05/05/18 16:00 Blood Blood Culture - Preliminary NO GROWTH AFTER 24 HOURS Resulted 05/05/18 16:17 Urine,Clean Catch Urine Culture - Preliminary Resulted Laboratory Tests 05/06/18 20:40: Arterial Blood pH 7.220*L, Arterial Blood Partial Pressure CO2 29.0L, Arterial Blood Partial Pressure O2 222.1H, Arterial Blood HCO3 11.6L, Arterial Blood Oxygen Saturation 98.6H, Arterial Blood Base Excess -14.7, Bro Test Positive 05/07/18 06:25: White Blood Count 6.7, Red Blood Count 3.88L, Hemoglobin 12.5#, Hematocrit 37.3# , Mean Corpuscular Volume 96#, Mean Corpuscular Hemoglobin 32.1H, Mean Corpuscular Hemoglobin Concent 33.4, Red Cell Distribution Width 15.1H, Platelet Count 39L, Mean Platelet Volume 7.0, Neutrophils (%) (Auto) , Lymphocytes (%) (Auto) , Monocytes (%) (Auto) , Eosinophils (%) (Auto) , Basophils (%) (Auto) , Differential Total Cells Counted 100, Neutrophils % ( Manual) 83H, Lymphocytes % (Manual) 5L, Monocytes % (Manual) 12H, Eosinophils % (Manual) 0, Basophils % (Manual) 0, Band Neutrophils 0, Platelet Estimate DecreasedL, Platelet Morphology Normal, Red Blood Cell Morphology Normal, Sodium Level 148H, Potassium Level 3.7, Chloride Level 106, Carbon Dioxide Level 17L, Anion Gap 25H, Blood Urea Nitrogen 191H, Creatinine 15.4H, Estimat Glomerular Filtration Rate , Glucose Level 239H, Lactic Acid Level 4.40H, Uric Acid 15.9H, Calcium Level 7.9L, Phosphorus Level 16.0H, Magnesium Level 2.5H, Total Bilirubin 1.1H, Direct Bilirubin 0.4H, Aspartate Amino Transf (AST/SGOT) 29, Alanine Aminotransferase (ALT/SGPT) 22, Alkaline Phosphatase 117H, Ammonia 26, Troponin I 1.047H, C-Reactive Protein, Quantitative < 0.4, Pro-B-Type Natriuretic Peptide 7924H, Total Protein 6.8, Albumin 2.6L, Globulin 4.2, Albumin/Globulin Ratio 0.6L 05/07/18 10:20: Lactic Acid Level 4.10H Current Medications Medications (Trade) Dose Ordered Sig/Dean Route PRN Reason Start Time Stop Time Status Last Admin Dose Admin Acetaminophen (Tylenol) 650 mg Q4H PRN GT MILD PAIN AND TEMP 05/05/18 23:15 06/04/18 23:14 05/05/18 23:41 Allopurinol (Allopurinol) 300 mg DAILY ORAL 05/07/18 09:00 06/06/18 08:59 05/07/18 09:29 Alprazolam (Xanax) 0.25 mg BEDTIME ORAL 05/07/18 21:00 05/14/18 20:59 Ceftriaxone Sodium 1 gm/ Dextrose 55 ml @ 110 mls/hr Q24H IVPB 05/06/18 18:00 05/13/18 17:59 05/06/18 17:13 Docusate Sodium (Colace) 100 mg THREE TIMES A DAY ORAL 05/06/18 18:00 06/05/18 17:59 05/06/18 17:12 Lactulose (Cephulac) 10 gm THREE TIMES A DAY ORAL 05/07/18 13:00 06/06/18 12:59 05/07/18 13:06 Metoclopramide HCl (Reglan) 10 mg Q6H PRN IVP Nausea & Vomiting 05/06/18 09:09 06/05/18 09:08 Ondansetron HCl (Zofran ODT) 4 mg Q6H PRN ORAL Nausea & Vomiting 05/07/18 14:30 06/06/18 14:29 05/07/18 14:38 Pantoprazole (Protonix) 40 mg DAILY IVP 05/05/18 20:30 06/04/18 20:29 05/07/18 09:29 Quetiapine Fumarate (SEROquel) 12.5 mg Q4H PRN ORAL agitation 05/07/18 11:15 06/06/18 11:14 Quetiapine Fumarate (SEROquel) 50 mg BEDTIME ORAL 05/07/18 21:00 06/06/18 20:59 Rifaximin (Xifaxan) 550 mg EVERY 12 HOURS ORAL 05/06/18 21:00 05/13/18 20:59 05/07/18 09:29 Sevelamer Carbonate (Renvela) 2,400 mg TIAC ORAL 05/07/18 16:30 06/05/18 11:29 Sodium Citrate (Bicitra) 30 ml EVERY 6 HOURS ORAL 05/06/18 12:00 06/05/18 11:59 05/07/18 13:06 Hemanth Gee MD May 07, 2018 16:42
[2018-05-07] MEDS: cefTRIAXone 1 GM in D5W 55 ML IVPB SCH (17:12)
--- NOTE | 2018-05-07 19:50 | General Progress Note ---
Assessment/Plan Problem List: (1) Renal failure ICD Codes: N19 - Unspecified kidney failure SNOMED: 19683146 (2) UTI (urinary tract infection) ICD Codes: N39.0 - Urinary tract infection, site not specified SNOMED: 65064306 (3) Episode of generalized weakness ICD Codes: R53.1 - Weakness SNOMED: 84917902 (4) Anemia ICD Codes: D64.9 - Anemia, unspecified SNOMED: 387622727 (5) Altered mental status ICD Codes: R41.82 - Altered mental status, unspecified SNOMED: 030192885 (6) Autoimmune hepatitis ICD Codes: K75.4 - Autoimmune hepatitis SNOMED: 326723541 (7) Acute renal failure (ARF) ICD Codes: N17.9 - Acute kidney failure, unspecified SNOMED: 60913890 (8) Urinary retention ICD Codes: R33.9 - Retention of urine, unspecified SNOMED: 054275731 Status: progressing Assessment/Plan dpoa refused hd consulted urology dpoa wants patient to be doc spoke [facility] is to dc in am w per request of samir very poor prognosis Subjective Allergies: Coded Allergies: CLONIDINE (Unverified Allergy, Mild, Rash, 05/06/18) clonidine patch* Objective Last 24 Hour Vital Signs Date Time Temp Pulse Resp B/P (MAP) Pulse Ox O2 Delivery O2 Flow Rate FiO2 05/07/18 16:00 125 05/07/18 16:00 95.7 110 20 143/78 (99) 95 95.7 05/07/18 12:00 96.8 104 16 133/78 (96) 94 96.8 05/07/18 12:00 100 05/07/18 09:00 Nasal Cannula 2.0 05/07/18 08:00 96.6 91 16 134/77 (96) 94 96.6 05/07/18 08:00 108 05/07/18 04:33 95.5 64 16 147/84 (105) 97 95.5 05/07/18 04:00 92 05/07/18 00:39 97.5 91 16 133/59 (83) 95 97.5 05/07/18 00:00 92 05/06/18 21:00 Nasal Cannula 2.0 05/06/18 20:18 96.5 104 19 95/47 (63) 91 96.5 05/06/18 20:00 93 Intake and Output 05/06/18 05/07/18 19:00 07:00 Intake Total 350 ml 909 ml Balance 350 ml 909 ml Intake Oral 50 ml 50 ml IV Total 300 ml 859 ml # Voids 1 # Bowel Movements 2 Laboratory Tests 05/06/18 20:40: Arterial Blood pH 7.220*L, Arterial Blood Partial Pressure CO2 29.0L, Arterial Blood Partial Pressure O2 222.1H, Arterial Blood HCO3 11.6L, Arterial Blood Oxygen Saturation 98.6H, Arterial Blood Base Excess -14.7, Bro Test Positive 05/07/18 06:25: White Blood Count 6.7, Red Blood Count 3.88L, Hemoglobin 12.5#, Hematocrit 37.3# , Mean Corpuscular Volume 96#, Mean Corpuscular Hemoglobin 32.1H, Mean Corpuscular Hemoglobin Concent 33.4, Red Cell Distribution Width 15.1H, Platelet Count 39L, Mean Platelet Volume 7.0, Neutrophils (%) (Auto) , Lymphocytes (%) (Auto) , Monocytes (%) (Auto) , Eosinophils (%) (Auto) , Basophils (%) (Auto) , Differential Total Cells Counted 100, Neutrophils % ( Manual) 83H, Lymphocytes % (Manual) 5L, Monocytes % (Manual) 12H, Eosinophils % (Manual) 0, Basophils % (Manual) 0, Band Neutrophils 0, Platelet Estimate DecreasedL, Platelet Morphology Normal, Red Blood Cell Morphology Normal, Sodium Level 148H, Potassium Level 3.7, Chloride Level 106, Carbon Dioxide Level 17L, Anion Gap 25H, Blood Urea Nitrogen 191H, Creatinine 15.4H, Estimat Glomerular Filtration Rate , Glucose Level 239H, Lactic Acid Level 4.40H, Uric Acid 15.9H, Calcium Level 7.9L, Phosphorus Level 16.0H, Magnesium Level 2.5H, Total Bilirubin 1.1H, Direct Bilirubin 0.4H, Aspartate Amino Transf (AST/SGOT) 29, Alanine Aminotransferase (ALT/SGPT) 22, Alkaline Phosphatase 117H, Ammonia 26, Troponin I 1.047H, C-Reactive Protein, Quantitative < 0.4, Pro-B-Type Natriuretic Peptide 7924H, Total Protein 6.8, Albumin 2.6L, Globulin 4.2, Albumin/Globulin Ratio 0.6L 9/6/18 10:20: Lactic Acid Level 4.10H Height (Feet): 5 Height (Inches): 2.00 Weight (Pounds): 114 Atilio Viera MD May 07, 2018 19:49
[2018-05-07 20:00] VITALS: BP 109/72
--- NOTE | 2018-05-07 20:58 | General Progress Note ---
Assessment/Plan Assessment/Plan ASSESSMENT AND RECOMMENDATIONS: 1. Severe pancytopenia, worsening likely secondary to liver cirrhosis and autoimmune hepatitis in addition to history of underlying cirrhosis to the liver , which has been chronic issue. At this time, transfuse if hemoglobin less than 7 and platelet count less than 20,000. Monitor lactic acidosis, on antibiotics. --> sp transfusion, hgb goal >7 --> vit K has been ordered to correct coagulopathy --> prognosis remains poor 2. Anemia due to underlying chronic disease. Continue to closely monitor. --> anemia panel has been reviewed 3. Macrocytosis due to underlying splenomegaly and cirrhosis. --> us of the abd reviewed and noted 4. Acute kidney injury and chronic kidney disease. Closely monitor with Nephrology service. --> sp ivf 5. 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 May need outpatient chelation therapy. --> recheck ferritin in several months as well 6. Hypercalcemia. Closely monitor for improvement. Keep on intravenous fluids. 7. Hyperuricemia. Nephrology service evaluation. 8. Troponin leak. Further evaluation by Cardiology. I appreciate the consultation. Subjective Constitutional: Denies: no symptoms, chills, diaphoresis, fever, malaise, weakness, other HEENT: Denies: no symptoms, eye pain, blurred vision, tearing, double vision, ear pain, ear discharge, nose pain, nose congestion, throat pain, throat swelling, mouth pain, mouth swelling, other Cardiovascular: Denies: no symptoms, chest pain, edema, irregular heart rate, lightheadedness, palpitations, syncope, other Respiratory: Denies: no symptoms, cough, orthopnea, shortness of breath, SOB with excertion, SOB at rest, sputum, stridor, wheezing, other Gastrointestinal/Abdominal: Denies: no symptoms, abdomen distended, abdominal pain, black stools, tarry stools, blood in stool, constipated, diarrhea, difficulty swallowing, nausea, poor appetite, poor fluid intake, rectal bleeding , vomiting, other Genitourinary: Denies: no symptoms, burning, discharge, frequency, flank pain, hematuria, incontinence, pain, urgency, other Neurologic/Psychiatric: Denies: no symptoms, anxiety, depressed, emotional problems, headache, numbness, paresthesia, pre-existing deficit, seizure, tingling, tremors, weakness, other Endocrine: Denies: no symptoms, excessive sweating, flushing, intolerance to cold, intolerance to heat, increased hunger, increased thirst, increased urine, unexplained weight gain, unexplained weight loss, other Hematologic/Lymphatic: Denies: no symptoms, anemia, easy bleeding, easy bruising, other Allergies: Coded Allergies: CLONIDINE (Unverified Allergy, Mild, Rash, 05/06/18) clonidine patch* Subjective prognosis remains poor, elev INR, h/h better Objective Last 24 Hour Vital Signs Date Time Temp Pulse Resp B/P (MAP) Pulse Ox O2 Delivery O2 Flow Rate FiO2 05/07/18 20:05 Nasal Cannula 3.0 32 05/07/18 20:05 96 Nasal Cannula 3.0 32 05/07/18 16:00 125 05/07/18 16:00 95.7 110 20 143/78 (99) 95 95.7 05/07/18 12:00 96.8 104 16 133/78 (96) 94 96.8 05/07/18 12:00 100 05/07/18 09:00 Nasal Cannula 2.0 05/07/18 08:00 96.6 91 16 134/77 (96) 94 96.6 05/07/18 08:00 108 05/07/18 04:33 95.5 64 16 147/84 (105) 97 95.5 05/07/18 04:00 92 05/07/18 00:39 97.5 91 16 133/59 (83) 95 97.5 05/07/18 00:00 92 05/06/18 21:00 Nasal Cannula 2.0 Intake and Output 05/06/18 05/07/18 19:00 07:00 Intake Total 350 ml 909 ml Balance 350 ml 909 ml Intake Oral 50 ml 50 ml IV Total 300 ml 859 ml # Voids 1 # Bowel Movements 2 Laboratory Tests 05/07/18 06:25: White Blood Count 6.7, Red Blood Count 3.88L, Hemoglobin 12.5#, Hematocrit 37.3# , Mean Corpuscular Volume 96#, Mean Corpuscular Hemoglobin 32.1H, Mean Corpuscular Hemoglobin Concent 33.4, Red Cell Distribution Width 15.1H, Platelet Count 39L, Mean Platelet Volume 7.0, Neutrophils (%) (Auto) , Lymphocytes (%) (Auto) , Monocytes (%) (Auto) , Eosinophils (%) (Auto) , Basophils (%) (Auto) , Differential Total Cells Counted 100, Neutrophils % ( Manual) 83H, Lymphocytes % (Manual) 5L, Monocytes % (Manual) 12H, Eosinophils % (Manual) 0, Basophils % (Manual) 0, Band Neutrophils 0, Platelet Estimate DecreasedL, Platelet Morphology Normal, Red Blood Cell Morphology Normal, Sodium Level 148H, Potassium Level 3.7, Chloride Level 106, Carbon Dioxide Level 17L, Anion Gap 25H, Blood Urea Nitrogen 191H, Creatinine 15.4H, Estimat Glomerular Filtration Rate , Glucose Level 239H, Lactic Acid Level 4.40H, Uric Acid 15.9H, Calcium Level 7.9L, Phosphorus Level 16.0H, Magnesium Level 2.5H, Total Bilirubin 1.1H, Direct Bilirubin 0.4H, Aspartate Amino Transf (AST/SGOT) 29, Alanine Aminotransferase (ALT/SGPT) 22, Alkaline Phosphatase 117H, Ammonia 26, Troponin I 1.047H, C-Reactive Protein, Quantitative < 0.4, Pro-B-Type Natriuretic Peptide 7924H, Total Protein 6.8, Albumin 2.6L, Globulin 4.2, Albumin/Globulin Ratio 0.6L 05/07/18 10:20: Lactic Acid Level 4.10H Height (Feet): 5 Height (Inches): 2.00 Weight (Pounds): 114 General Appearance: alert EENT: TMs normal Neck: supple Cardiovascular: regular rhythm Respiratory/Chest: lungs clear Abdomen: non tender Extremities: non-tender Edema: 1+ Leg (L), 1+ Leg (R) Edema: mild edema Neurologic: alert Skin: warm/dry Schuyler Rogers MD May 07, 2018 20:57
[2018-05-07] MEDS ORDERED: ALPRAZolam 0.25mg tab ORAL SCH (21:00)
[2018-05-07] MEDS ORDERED: Phytonadione 10 mg/mL 1ml amp SUBQ ONE (22:00)
--- NOTE | 2018-05-07 23:42 | Cardiology Progress Note ---
Assessment/Plan Assessment/Plan 1. Hypotension, resolved, possibly due to septic shock or hypoalbuminemia associated with liver cirrhosis. The patient's albumin level is 2.4, responded well to sodium carbonate infusion. 2. Slight elevation of troponin I level, could be a variety of etiologies including sepsis, non-ST elevation myocardial infarction type 2, or troponin leakage associated with renal failure. At this time, given the patient's comorbidities including liver cirrhosis and severe renal failure, the patient is not considered to be a suitable candidate for ischemic workup. Awaiting 2D echo report. 3. Sinus tachycardia likely due to intravascular volume depletion. Subjective Subjective Sinus tachycardia at 105. Objective Last 24 Hour Vital Signs Date Time Temp Pulse Resp B/P (MAP) Pulse Ox O2 Delivery O2 Flow Rate FiO2 05/07/18 21:00 Nasal Cannula 2.0 05/07/18 20:05 Nasal Cannula 3.0 32 05/07/18 20:05 96 Nasal Cannula 3.0 32 05/07/18 20:00 95.7 113 18 109/72 (84) 95 95.7 05/07/18 20:00 105 05/07/18 16:00 125 05/07/18 16:00 95.7 110 20 143/78 (99) 95 95.7 05/07/18 12:00 96.8 104 16 133/78 (96) 94 96.8 05/07/18 12:00 100 05/07/18 09:00 Nasal Cannula 2.0 05/07/18 08:00 96.6 91 16 134/77 (96) 94 96.6 05/07/18 08:00 108 05/07/18 04:33 95.5 64 16 147/84 (105) 97 95.5 05/07/18 04:00 92 05/07/18 00:39 97.5 91 16 133/59 (83) 95 97.5 05/07/18 00:00 92 Cardiovascular: normal peripheral pulses Intake and Output 05/06/18 05/07/18 19:00 07:00 Intake Total 350 ml 909 ml Balance 350 ml 909 ml Intake Oral 50 ml 50 ml IV Total 300 ml 859 ml # Voids 1 # Bowel Movements 2 Laboratory Tests Test 05/07/18 06:25 05/07/18 10:20 White Blood Count 6.7 K/UL (4.8-10.8) Red Blood Count 3.88 M/UL (4.20-5.40) L Hemoglobin 12.5 G/DL (12.0-16.0) # Hematocrit 37.3 % (37.0-47.0) # Mean Corpuscular Volume 96 FL (80-99) # Mean Corpuscular Hemoglobin 32.1 PG (27.0-31.0) H Mean Corpuscular Hemoglobin Concent 33.4 G/DL (32.0-36.0) Red Cell Distribution Width 15.1 % (11.6-14.8) H Platelet Count 39 K/UL (150-450) L Mean Platelet Volume 7.0 FL (6.5-10.1) Neutrophils (%) (Auto) % (45.0-75.0) Lymphocytes (%) (Auto) % (20.0-45.0) Monocytes (%) (Auto) % (1.0-10.0) Eosinophils (%) (Auto) % (0.0-3.0) Basophils (%) (Auto) % (0.0-2.0) Differential Total Cells Counted 100 Neutrophils % (Manual) 83 % (45-75) H Lymphocytes % (Manual) 5 % (20-45) L Monocytes % (Manual) 12 % (1-10) H Eosinophils % (Manual) 0 % (0-3) Basophils % (Manual) 0 % (0-2) Band Neutrophils 0 % (0-8) Platelet Estimate Decreased L Platelet Morphology Normal Red Blood Cell Morphology Normal Sodium Level 148 MMOL/L (136-145) H Potassium Level 3.7 MMOL/L (3.5-5.1) Chloride Level 106 MMOL/L (98-107) Carbon Dioxide Level 17 MMOL/L (21-32) L Anion Gap 25 mmol/L (5-15) H Blood Urea Nitrogen 191 mg/dL (7-18) H Creatinine 15.4 MG/DL (0.55-1.30) H Estimat Glomerular Filtration Rate mL/min (>60) Glucose Level 239 MG/DL (74-106) H Lactic Acid Level 4.40 mmol/L (0.4-2.0) H 4.10 mmol/L (0.66-2.22) H Uric Acid 15.9 MG/DL (2.6-7.2) H Calcium Level 7.9 MG/DL (8.5-10.1) L Phosphorus Level 16.0 MG/DL (2.5-4.9) H Magnesium Level 2.5 MG/DL (1.8-2.4) H Total Bilirubin 1.1 MG/DL (0.2-1.0) H Direct Bilirubin 0.4 MG/DL (0.0-0.3) H Aspartate Amino Transf (AST/SGOT) 29 U/L (15-37) Alanine Aminotransferase (ALT/SGPT) 22 U/L (12-78) Alkaline Phosphatase 117 U/L (46-116) H Ammonia 26 umol/L (11-32) Troponin I 1.047 ng/mL (0.000-0.056) C-Reactive Protein, Quantitative < 0.4 mg/dL (0.00-0.90) Pro-B-Type Natriuretic Peptide 7924 pg/mL (0-125) H Total Protein 6.8 G/DL (6.4-8.2) Albumin 2.6 G/DL (3.4-5.0) L Globulin 4.2 g/dL Albumin/Globulin Ratio 0.6 (1.0-2.7) L Microbiology Date/Time Source Procedure Growth Status 05/05/18 16:15 Blood Blood Culture - Preliminary NO GROWTH AFTER 24 HOURS Resulted 05/05/18 16:00 Blood Blood Culture - Preliminary NO GROWTH AFTER 24 HOURS Resulted 05/05/18 16:17 Urine,Clean Catch Urine Culture - Preliminary Resulted Objective HEENT: Atraumatic and normocephalic. Pupils are equal, round, and reactive to light and accommodation. Conjunctivae pallor. NECK: JVP less than 5 cm. No carotid bruit. CARDIOVASCULAR: Normal S1 and S2. Tachycardic. No murmurs, gallops, or rubs. LUNGS: Diminished breath sounds in both bases. ABDOMEN: Soft, nontender, and nondistended. No hepatosplenomegaly. Positive bowel sounds. EXTREMITIES: No evidence of edema, clubbing, or cyanosis. Rubio Meyer MD May 07, 2018 23:42
[2018-05-07] MEDS ORDERED: Propranolol 10mg tab ORAL SCH (23:45)
[2018-05-08] VITALS: BP 113/69
--- NOTE | 2018-05-08 03:15 | Consultation ---
DATE OF CONSULTATION: 05/07/2018 UROLOGY CONSULTATION CONSULTING PHYSICIAN: Freddie Mabry M.D. ATTENDING/REFERRING PHYSICIAN: Gage Medley M.D. CHIEF COMPLAINT/HISTORY OF PRESENT ILLNESS: I was asked by Dr. Medley to evaluate this unfortunate 87-year-old female regarding history of scant or no urine output and possible urine retention with difficulty by staff to pass a catheter. 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 She also has history of diabetes. She presented to the hospital with failure to thrive and vomiting. She was noted to have florid renal failure with creatinine in the 15 range. The catheter which was in place had stopped draining and it was changed, but no output was noted. Staff felt it might not be in the right place and reported difficulty placing it. A bladder scan revealed a possible value of 800-plus mL in the patient's bladder and as such, I was asked to evaluate the patient. PAST MEDICAL HISTORY: 1. Autoimmune hepatitis. 2. Cirrhosis secondary to same. 3. Diabetes. 4. Coronary artery disease. 5. Acute renal insufficiency here. 6. Anemia. MEDICATIONS: Please see the chart for current medications and administration details. ALLERGIES: No known drug allergies. SOCIAL HISTORY: Unremarkable for tobacco, alcohol, or drug use. FAMILY HISTORY: Noncontributory. REVIEW OF SYSTEMS: A 12-system review of systems was not really able to be completed as the patient cannot cooperate much with questioning. PHYSICAL EXAMINATION: GENERAL: The patient is a very elderly female, awake and somewhat alert, not oriented, in no obvious distress. HEENT: NC/AT. Oropharynx clear. NECK: Supple. CHEST: Within normal limits. ABDOMEN: Soft, somewhat distended consistent with ascites fluid. There is a Pleur-evac drain in place. EXTREMITIES: Warm and well perfused. No cyanosis, clubbing, or edema. BACK: No apparent CVA tenderness. NEUROLOGIC: Notable for altered mental status/dementia. The patient cannot cooperate with remainder of the exam. GENITOURINARY: Normal female external genitalia with moderate atrophy. LABORATORY DATA: Sodium 148, potassium 3.7, chloride 106, bicarbonate 17, BUN 191, creatinine 15.4, and glucose 239. LFTs within normal limits. White blood cell count 6.7, hematocrit 37.3, and platelets 39,000. PT 18.1, INR 1.8, and PTT 55. Urinalysis, specific gravity 1.015 and pH 6.5. Dip test notable for 4+ protein, 1+ ketones, 5+ blood, and positive nitrites. Microanalysis with 5-10 red blood cells per high-power field, 10-20 white blood cells per high-power field, and many bacteria seen. Urine culture pending. Blood culture is negative and final. DIAGNOSTIC IMAGING: Renal ultrasound with medical renal disease. No evidence of obstruction of the kidneys. There is a Sosa catheter in the bladder, which is completely nondistended. Pelvic ultrasound, same. ASSESSMENT AND PLAN: In summary, the patient is an 87-year-old female with history of cirrhosis secondary to autoimmune hepatitis. She has ascites and has a Pleur-evac drain in place. She presented to the hospital with failure to thrive and worsening overall health. A Sosa was in place, but had stopped draining. It was swapped out and continued to not drain. The patient has evidence of renal failure with creatinine of 15. Physical exam reveals atrophic female genitalia. Laboratory data is notable for the creatinine mentioned above. Diagnostic imaging reveals a nondistended bladder. I replaced the Sosa catheter in this patient today. It did not put out any output, but irrigated easily and without problems indicating good position within the bladder. It appears that the patient's lack of urine output is from her florid renal failure and not from incorrect placement of the catheter or obstruction to drainage. Furthermore, it appears that the patient's high "bladder scan" is more likely the result of ascites fluid within the abdomen being picked up by the scanner and not true retention. The catheter will be left in place so that Nephrology can monitor the urine output as needed. Thank you for allowing me to participate in the care of this unfortunate lady. Please do not hesitate to contact me with any questions that you may further have regarding her care. I will see her with you as needed. Freddie Mabry M.D. DR: LITTLE JOB#: [id number] CC:
[2018-05-08 04:00] VITALS: BP 121/68
[2018-05-08] MEDS: Renvela 2400 mg pkt ORAL SCH ×2 (05:45→11:30)
[2018-05-08] MEDS: Sodium Citrate 30ml ORAL SCH ×2 (05:45→12:00)
[2018-05-08 05:59] LABS: HEMATOCRIT 41.3 % (37.0-47.0); HEMOGLOBIN 13.7 G/DL (12.0-16.0); MEAN CORPUSCULAR VOLUME 97 FL (80-99); PLATELET COUNT 24 K/UL (150-450); RED BLOOD COUNT 4.28 M/UL (4.20-5.40); RED CELL DISTRIBUTION WIDTH 15.3 % (11.6-14.8); WHITE BLOOD COUNT 3.4 K/UL (4.8-10.8)
[2018-05-08 06:22] LABS: ALANINE AMINOTRANSFERASE 18 U/L (12-78); ALBUMIN 2.3 G/DL (3.4-5.0); ALBUMIN/GLOBULIN RATIO 0.5 (1.0-2.7); ALKALINE PHOSPHATASE 118 U/L (46-116); ANION GAP 31 mmol/L (5-15); ASPARTATE AMINO TRANSFERASE 30 U/L (15-37); BILIRUBIN,TOTAL 0.8 MG/DL (0.2-1.0); BLOOD UREA NITROGEN 184 mg/dL (7-18); CALCIUM 6.9 MG/DL (8.5-10.1); CARBON DIOXIDE 13 MMOL/L (21-32); CHLORIDE 106 MMOL/L (98-107); POTASSIUM 4.3 MMOL/L (3.5-5.1); SODIUM 150 MMOL/L (136-145)
[2018-05-08 08:00] VITALS: BP 121/59
[2018-05-08] MEDS: Pantoprazole Inj IVP SCH (09:00)
[2018-05-08] MEDS: Lactulose 10gm/15ml UDC ORAL SCH ×2 (09:00→13:00)
[2018-05-08] MEDS: Docusate 100mg/10ml Liq ORAL SCH ×2 (09:00→13:00)
[2018-05-08 12:00] VITALS: BP 102/53
--- NOTE | 2018-05-08 12:04 | GI Progress Note ---
Assessment/Plan Problems: (1) Autoimmune hepatitis ICD Codes: K75.4 - Autoimmune hepatitis SNOMED: 026344254 (2) Altered mental status ICD Codes: R41.82 - Altered mental status, unspecified SNOMED: 396781968 (3) Anemia ICD Codes: D64.9 - Anemia, unspecified SNOMED: 951871395 (4) Episode of generalized weakness ICD Codes: R53.1 - Weakness SNOMED: 78773451 (5) Renal failure ICD Codes: N19 - Unspecified kidney failure SNOMED: 43294317 Status: doing well, stable Status Narrative Discussed with Dr. Rosa. Assessment/Plan occult stool positive elevated troponin levels Pleur X present hold GI procedures at this time given elevated troponin levels, will require cardiac clearance if family agrees monitor H&H, prn transfusions >> 2 units today send addition OB stool low dose lactulose 10mg + xifaxan ppi BID trend LFTs zofran prn fu labs The patient was seen and examined at bedside and all new and available data was reviewed in the patients chart. I agree with the above findings, impression and plan. (Patient seen earlier today. Signature stamp does not reflect patient encounter time.). - Jesse Rosa MD Subjective Gastrointestinal/Abdominal: Reports: no symptoms Objective Last 24 Hour Vital Signs Date Time Temp Pulse Resp B/P (MAP) Pulse Ox O2 Delivery O2 Flow Rate FiO2 05/08/18 09:00 Nasal Cannula 2.0 05/08/18 08:00 97.0 90 20 121/59 (79) 100 97.0 05/08/18 04:00 95.5 81 12 121/68 (85) 94 95.5 05/08/18 04:00 82 05/08/18 01:14 125 113/69 05/08/18 00:00 95 05/08/18 00:00 96.4 86 20 113/69 (84) 97 96.4 05/07/18 21:00 Nasal Cannula 2.0 05/07/18 20:05 Nasal Cannula 3.0 32 05/07/18 20:05 96 Nasal Cannula 3.0 32 05/07/18 20:00 95.7 113 18 109/72 (84) 95 95.7 05/07/18 20:00 105 05/07/18 16:00 125 05/07/18 16:00 95.7 110 20 143/78 (99) 95 95.7 Intake and Output 05/07/18 05/08/18 19:00 07:00 Intake Total 75 ml Balance 75 ml Intake Oral 75 ml # Bowel Movements 1 1 Laboratory Tests Test 05/08/18 05:20 White Blood Count 3.4 K/UL (4.8-10.8) L Red Blood Count 4.28 M/UL (4.20-5.40) Hemoglobin 13.7 G/DL (12.0-16.0) Hematocrit 41.3 % (37.0-47.0) Mean Corpuscular Volume 97 FL (80-99) Mean Corpuscular Hemoglobin 32.1 PG (27.0-31.0) H Mean Corpuscular Hemoglobin Concent 33.2 G/DL (32.0-36.0) Red Cell Distribution Width 15.3 % (11.6-14.8) H Platelet Count 24 K/UL (150-450) L Mean Platelet Volume 7.5 FL (6.5-10.1) Neutrophils (%) (Auto) % (45.0-75.0) Lymphocytes (%) (Auto) % (20.0-45.0) Monocytes (%) (Auto) % (1.0-10.0) Eosinophils (%) (Auto) % (0.0-3.0) Basophils (%) (Auto) % (0.0-2.0) Differential Total Cells Counted 100 Neutrophils % (Manual) 93 % (45-75) H Lymphocytes % (Manual) 2 % (20-45) L Monocytes % (Manual) 2 % (1-10) Eosinophils % (Manual) 3 % (0-3) Basophils % (Manual) 0 % (0-2) Band Neutrophils 0 % (0-8) Platelet Estimate Decreased L Platelet Morphology Normal Anisocytosis 2+ Sodium Level 150 MMOL/L (136-145) H Potassium Level 4.3 MMOL/L (3.5-5.1) Chloride Level 106 MMOL/L (98-107) Carbon Dioxide Level 13 MMOL/L (21-32) L Anion Gap 31 mmol/L (5-15) H Blood Urea Nitrogen 184 mg/dL (7-18) H Creatinine 16.0 MG/DL (0.55-1.30) H Estimat Glomerular Filtration Rate mL/min (>60) Glucose Level 191 MG/DL (74-106) H Lactic Acid Level 5.10 mmol/L (0.4-2.0) H Uric Acid 15.6 MG/DL (2.6-7.2) H Calcium Level 6.9 MG/DL (8.5-10.1) L Phosphorus Level 15.0 MG/DL (2.5-4.9) H Magnesium Level 2.6 MG/DL (1.8-2.4) H Total Bilirubin 0.8 MG/DL (0.2-1.0) Aspartate Amino Transf (AST/SGOT) 30 U/L (15-37) Alanine Aminotransferase (ALT/SGPT) 18 U/L (12-78) Alkaline Phosphatase 118 U/L (46-116) H Pro-B-Type Natriuretic Peptide 8472 pg/mL (0-125) H Total Protein 6.6 G/DL (6.4-8.2) Albumin 2.3 G/DL (3.4-5.0) L Globulin 4.3 g/dL Albumin/Globulin Ratio 0.5 (1.0-2.7) L Height (Feet): 5 Height (Inches): 2.00 Weight (Pounds): 114 General Appearance: WD/WN, no apparent distress, alert, thin Cardiovascular: normal rate Respiratory/Chest: normal breath sounds, no respiratory distress Abdominal Exam: normal bowel sounds, non tender, soft Extremities: non-tender Mónica Barrios NP May 08, 2018 12:04
--- NOTE | 2018-05-08 12:28 | General Progress Note ---
Assessment/Plan Assessment/Plan ASSESSMENT AND RECS: 1. Severe pancytopenia, worsening likely secondary to liver cirrhosis and autoimmune hepatitis in addition to history of underlying cirrhosis to the liver , which has been chronic issue. At this time, transfuse if hemoglobin less than 7 and platelet count less than 20,000. Monitor lactic acidosis, on antibiotics. --> sp transfusion, hgb goal >7 --> vit K has been ordered to correct coagulopathy --> prognosis remains poor 2. Anemia due to underlying chronic disease. Continue to closely monitor. --> anemia panel has been reviewed --> hgb remains >7 3. Macrocytosis due to underlying splenomegaly and cirrhosis. --> us of the abd reviewed and noted 4. Acute kidney injury and chronic kidney disease. Closely monitor with Nephrology service. --> sp ivf 5. 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 May need outpatient chelation therapy. --> recheck ferritin in several months as well 6. Hypercalcemia. Closely monitor for improvement. Keep on intravenous fluids. 7. Hyperuricemia. Nephrology service evaluation. 8. Troponin leak. Further evaluation by Cardiology. I appreciate the consultation Subjective Constitutional: Denies: no symptoms, chills, diaphoresis, fever, malaise, weakness, other HEENT: Denies: no symptoms, eye pain, blurred vision, tearing, double vision, ear pain, ear discharge, nose pain, nose congestion, throat pain, throat swelling, mouth pain, mouth swelling, other Cardiovascular: Denies: no symptoms, chest pain, edema, irregular heart rate, lightheadedness, palpitations, syncope, other Respiratory: Denies: no symptoms, cough, orthopnea, shortness of breath, SOB with excertion, SOB at rest, sputum, stridor, wheezing, other Gastrointestinal/Abdominal: Denies: no symptoms, abdomen distended, abdominal pain, black stools, tarry stools, blood in stool, constipated, diarrhea, difficulty swallowing, nausea, poor appetite, poor fluid intake, rectal bleeding , vomiting, other Genitourinary: Denies: no symptoms, burning, discharge, frequency, flank pain, hematuria, incontinence, pain, urgency, other Neurologic/Psychiatric: Denies: no symptoms, anxiety, depressed, emotional problems, headache, numbness, paresthesia, pre-existing deficit, seizure, tingling, tremors, weakness, other Endocrine: Denies: no symptoms, excessive sweating, flushing, intolerance to cold, intolerance to heat, increased hunger, increased thirst, increased urine, unexplained weight gain, unexplained weight loss, other Hematologic/Lymphatic: Denies: no symptoms, anemia, easy bleeding, easy bruising, other Allergies: Coded Allergies: CLONIDINE (Unverified Allergy, Mild, Rash, 05/06/18) clonidine patch* Subjective prognosis remains poor, elev INR, h/h better Objective Last 24 Hour Vital Signs Date Time Temp Pulse Resp B/P (MAP) Pulse Ox O2 Delivery O2 Flow Rate FiO2 05/08/18 12:00 95.4 81 20 102/53 (69) 95 95.4 05/08/18 09:00 Nasal Cannula 2.0 05/08/18 08:00 95.4 90 20 121/59 (79) 100 95.4 05/08/18 04:00 95.5 81 12 121/68 (85) 94 95.5 05/08/18 04:00 82 05/08/18 01:14 125 113/69 05/08/18 00:00 95 05/08/18 00:00 96.4 86 20 113/69 (84) 97 96.4 05/07/18 21:00 Nasal Cannula 2.0 05/07/18 20:05 Nasal Cannula 3.0 32 05/07/18 20:05 96 Nasal Cannula 3.0 32 05/07/18 20:00 95.7 113 18 109/72 (84) 95 95.7 05/07/18 20:00 105 05/07/18 16:00 125 05/07/18 16:00 95.7 110 20 143/78 (99) 95 95.7 Intake and Output 05/07/18 05/08/18 19:00 07:00 Intake Total 75 ml Balance 75 ml Intake Oral 75 ml # Bowel Movements 1 1 Laboratory Tests 05/08/18 05:20: White Blood Count 3.4L, Red Blood Count 4.28, Hemoglobin 13.7, Hematocrit 41.3, Mean Corpuscular Volume 97, Mean Corpuscular Hemoglobin 32.1H, Mean Corpuscular Hemoglobin Concent 33.2, Red Cell Distribution Width 15.3H, Platelet Count 24L, Mean Platelet Volume 7.5, Neutrophils (%) (Auto) , Lymphocytes (%) (Auto) , Monocytes (%) (Auto) , Eosinophils (%) (Auto) , Basophils (%) (Auto) , Differential Total Cells Counted 100, Neutrophils % (Manual) 93H, Lymphocytes % (Manual) 2L, Monocytes % (Manual) 2, Eosinophils % (Manual) 3, Basophils % ( Manual) 0, Band Neutrophils 0, Platelet Estimate DecreasedL, Platelet Morphology Normal, Anisocytosis 2+, Sodium Level 150H, Potassium Level 4.3, Chloride Level 106, Carbon Dioxide Level 13L, Anion Gap 31H, Blood Urea Nitrogen 184H, Creatinine 16.0H, Estimat Glomerular Filtration Rate , Glucose Level 191H, Lactic Acid Level 5.10H, Uric Acid 15.6H, Calcium Level 6.9L, Phosphorus Level 15.0H, Magnesium Level 2.6H, Total Bilirubin 0.8, Aspartate Amino Transf (AST/SGOT) 30, Alanine Aminotransferase (ALT/SGPT) 18, Alkaline Phosphatase 118H, Pro-B-Type Natriuretic Peptide 8472H, Total Protein 6.6, Albumin 2.3L, Globulin 4.3, Albumin/Globulin Ratio 0.5L 05/08/18 06:07: Stool Occult Blood Positive 05/08/18 11:50: Lactic Acid Level [Pending] Height (Feet): 5 Height (Inches): 2.00 Weight (Pounds): 114 General Appearance: WD/WN EENT: normal ENT inspection Neck: normal inspection Cardiovascular: regular rhythm Respiratory/Chest: no respiratory distress Abdomen: non tender Extremities: non-tender Edema: no edema noted Leg (L), no edema noted Leg (R) Edema: mild edema Neurologic: alert Skin: warm/dry Schuyler Rogers MD May 08, 2018 12:28
--- NOTE | 2018-05-08 12:43 | General Progress Note ---
Assessment/Plan Status: stable Assessment/Plan Encephalopathy due to [facility] Dementia -dc zyprexa -seroquel 50mg qhs -seroquel prn -xanax .25mg qhs Subjective Date patient seen: May 08, 2018 Neurologic/Psychiatric: Reports: anxiety, depressed, emotional problems Allergies: Coded Allergies: CLONIDINE (Unverified Allergy, Mild, Rash, 05/06/18) clonidine patch* Subjective slept well last night Objective Last 24 Hour Vital Signs Date Time Temp Pulse Resp B/P (MAP) Pulse Ox O2 Delivery O2 Flow Rate FiO2 05/08/18 12:00 95.4 81 20 102/53 (69) 95 95.4 05/08/18 09:00 Nasal Cannula 2.0 05/08/18 08:00 95.4 90 20 121/59 (79) 100 95.4 05/08/18 04:00 95.5 81 12 121/68 (85) 94 95.5 05/08/18 04:00 82 05/08/18 01:14 125 113/69 05/08/18 00:00 95 05/08/18 00:00 96.4 86 20 113/69 (84) 97 96.4 05/07/18 21:00 Nasal Cannula 2.0 05/07/18 20:05 Nasal Cannula 3.0 32 05/07/18 20:05 96 Nasal Cannula 3.0 32 05/07/18 20:00 95.7 113 18 109/72 (84) 95 95.7 05/07/18 20:00 105 05/07/18 16:00 125 05/07/18 16:00 95.7 110 20 143/78 (99) 95 95.7 Intake and Output 05/07/18 05/08/18 19:00 07:00 Intake Total 75 ml Balance 75 ml Intake Oral 75 ml # Bowel Movements 1 1 Laboratory Tests 05/08/18 05:20: White Blood Count 3.4L, Red Blood Count 4.28, Hemoglobin 13.7, Hematocrit 41.3, Mean Corpuscular Volume 97, Mean Corpuscular Hemoglobin 32.1H, Mean Corpuscular Hemoglobin Concent 33.2, Red Cell Distribution Width 15.3H, Platelet Count 24L, Mean Platelet Volume 7.5, Neutrophils (%) (Auto) , Lymphocytes (%) (Auto) , Monocytes (%) (Auto) , Eosinophils (%) (Auto) , Basophils (%) (Auto) , Differential Total Cells Counted 100, Neutrophils % (Manual) 93H, Lymphocytes % (Manual) 2L, Monocytes % (Manual) 2, Eosinophils % (Manual) 3, Basophils % ( Manual) 0, Band Neutrophils 0, Platelet Estimate DecreasedL, Platelet Morphology Normal, Anisocytosis 2+, Sodium Level 150H, Potassium Level 4.3, Chloride Level 106, Carbon Dioxide Level 13L, Anion Gap 31H, Blood Urea Nitrogen 184H, Creatinine 16.0H, Estimat Glomerular Filtration Rate , Glucose Level 191H, Lactic Acid Level 5.10H, Uric Acid 15.6H, Calcium Level 6.9L, Phosphorus Level 15.0H, Magnesium Level 2.6H, Total Bilirubin 0.8, Aspartate Amino Transf (AST/SGOT) 30, Alanine Aminotransferase (ALT/SGPT) 18, Alkaline Phosphatase 118H, Pro-B-Type Natriuretic Peptide 8472H, Total Protein 6.6, Albumin 2.3L, Globulin 4.3, Albumin/Globulin Ratio 0.5L 05/08/18 06:07: Stool Occult Blood Positive 05/08/18 11:50: Lactic Acid Level [Pending] Height (Feet): 5 Height (Inches): 2.00 Weight (Pounds): 114 General Appearance: no apparent distress, lethargic, confused Yann Gross MD May 08, 2018 12:43
--- NOTE | 2018-05-08 12:45 | Infectious Diseases Prog Note ---
Assessment/Plan Assessment/Plan A: 1. Pyuria 2. Autoimmune hepatitis and cirrhosis. 3. Diabetes mellitus. 4. Acute renal failure. 5. Chronic kidney disease. 6. Anemia. s/p blood transfusion 7. Thrombocytopenia. P: discontinue Rocephin continue Rifaximin agree with discharge Case was D/W family at bedside Very poor prognosis Subjective ROS Limited/Unobtainable: Yes Allergies: Coded Allergies: CLONIDINE (Unverified Allergy, Mild, Rash, 05/06/18) clonidine patch* Objective Vital Signs Last 24 Hour Vital Signs Date Time Temp Pulse Resp B/P (MAP) Pulse Ox O2 Delivery O2 Flow Rate FiO2 05/08/18 12:00 95.4 81 20 102/53 (69) 95 95.4 05/08/18 09:00 Nasal Cannula 2.0 05/08/18 08:00 95.4 90 20 121/59 (79) 100 95.4 05/08/18 04:00 95.5 81 12 121/68 (85) 94 95.5 05/08/18 04:00 82 05/08/18 01:14 125 113/69 05/08/18 00:00 95 05/08/18 00:00 96.4 86 20 113/69 (84) 97 96.4 05/07/18 21:00 Nasal Cannula 2.0 05/07/18 20:05 Nasal Cannula 3.0 32 05/07/18 20:05 96 Nasal Cannula 3.0 32 05/07/18 20:00 95.7 113 18 109/72 (84) 95 95.7 05/07/18 20:00 105 05/07/18 16:00 125 05/07/18 16:00 95.7 110 20 143/78 (99) 95 95.7 Height (Feet): 5 Height (Inches): 2.00 Weight (Pounds): 114 General Appearance: cachetic HEENT: normocephalic Respiratory/Chest: lungs clear Cardiovascular: normal rate Abdomen: soft, non tender Extremities: no edema Neurologic/Psychiatric: other - sleeping Microbiology Date/Time Source Procedure Growth Status 05/05/18 16:15 Blood Blood Culture - Preliminary NO GROWTH AFTER 48 HOURS Resulted 05/05/18 16:00 Blood Blood Culture - Preliminary NO GROWTH AFTER 48 HOURS Resulted 05/05/18 16:17 Urine,Clean Catch Urine Culture - Preliminary Yeast Species Resulted Laboratory Tests Test 05/08/18 05:20 05/08/18 06:07 05/08/18 11:50 White Blood Count 3.4 K/UL (4.8-10.8) L Red Blood Count 4.28 M/UL (4.20-5.40) Hemoglobin 13.7 G/DL (12.0-16.0) Hematocrit 41.3 % (37.0-47.0) Mean Corpuscular Volume 97 FL (80-99) Mean Corpuscular Hemoglobin 32.1 PG (27.0-31.0) H Mean Corpuscular Hemoglobin Concent 33.2 G/DL (32.0-36.0) Red Cell Distribution Width 15.3 % (11.6-14.8) H Platelet Count 24 K/UL (150-450) L Mean Platelet Volume 7.5 FL (6.5-10.1) Neutrophils (%) (Auto) % (45.0-75.0) Lymphocytes (%) (Auto) % (20.0-45.0) Monocytes (%) (Auto) % (1.0-10.0) Eosinophils (%) (Auto) % (0.0-3.0) Basophils (%) (Auto) % (0.0-2.0) Differential Total Cells Counted 100 Neutrophils % (Manual) 93 % (45-75) H Lymphocytes % (Manual) 2 % (20-45) L Monocytes % (Manual) 2 % (1-10) Eosinophils % (Manual) 3 % (0-3) Basophils % (Manual) 0 % (0-2) Band Neutrophils 0 % (0-8) Platelet Estimate Decreased L Platelet Morphology Normal Anisocytosis 2+ Sodium Level 150 MMOL/L (136-145) H Potassium Level 4.3 MMOL/L (3.5-5.1) Chloride Level 106 MMOL/L (98-107) Carbon Dioxide Level 13 MMOL/L (21-32) L Anion Gap 31 mmol/L (5-15) H Blood Urea Nitrogen 184 mg/dL (7-18) H Creatinine 16.0 MG/DL (0.55-1.30) H Estimat Glomerular Filtration Rate mL/min (>60) Glucose Level 191 MG/DL (74-106) H Lactic Acid Level 5.10 mmol/L (0.4-2.0) H Pending Uric Acid 15.6 MG/DL (2.6-7.2) H Calcium Level 6.9 MG/DL (8.5-10.1) L Phosphorus Level 15.0 MG/DL (2.5-4.9) H Magnesium Level 2.6 MG/DL (1.8-2.4) H Total Bilirubin 0.8 MG/DL (0.2-1.0) Aspartate Amino Transf (AST/SGOT) 30 U/L (15-37) Alanine Aminotransferase (ALT/SGPT) 18 U/L (12-78) Alkaline Phosphatase 118 U/L (46-116) H Pro-B-Type Natriuretic Peptide 8472 pg/mL (0-125) H Total Protein 6.6 G/DL (6.4-8.2) Albumin 2.3 G/DL (3.4-5.0) L Globulin 4.3 g/dL Albumin/Globulin Ratio 0.5 (1.0-2.7) L Stool Occult Blood Positive (NEGATIVE) Current Medications Medications (Trade) Dose Ordered Sig/Dean Route PRN Reason Start Time Stop Time Status Last Admin Dose Admin Acetaminophen (Tylenol) 650 mg Q4H PRN GT MILD PAIN AND TEMP 05/05/18 23:15 06/04/18 23:14 05/05/18 23:41 Allopurinol (Allopurinol) 300 mg DAILY ORAL 05/07/18 09:00 06/06/18 08:59 05/07/18 09:29 Alprazolam (Xanax) 0.25 mg BEDTIME ORAL 05/07/18 21:00 05/14/18 20:59 05/07/18 20:10 Ceftriaxone Sodium 1 gm/ Dextrose 55 ml @ 110 mls/hr Q24H IVPB 05/06/18 18:00 05/13/18 17:59 05/07/18 17:12 Docusate Sodium (Colace) 100 mg THREE TIMES A DAY ORAL 05/06/18 18:00 06/05/18 17:59 05/06/18 17:12 Lactulose (Cephulac) 10 gm THREE TIMES A DAY ORAL 05/07/18 13:00 06/06/18 12:59 05/07/18 17:12 Metoclopramide HCl (Reglan) 10 mg Q6H PRN IVP Nausea & Vomiting 05/06/18 09:09 06/05/18 09:08 Ondansetron HCl (Zofran ODT) 4 mg Q6H PRN ORAL Nausea & Vomiting 05/07/18 14:30 06/06/18 14:29 05/07/18 14:38 Pantoprazole (Protonix) 40 mg DAILY IVP 05/05/18 20:30 06/04/18 20:29 05/07/18 09:29 Quetiapine Fumarate (SEROquel) 12.5 mg Q4H PRN ORAL agitation 05/07/18 11:15 06/06/18 11:14 Quetiapine Fumarate (SEROquel) 50 mg BEDTIME ORAL 05/07/18 21:00 06/06/18 20:59 05/07/18 20:10 Rifaximin (Xifaxan) 550 mg EVERY 12 HOURS ORAL 05/06/18 21:00 05/13/18 20:59 05/07/18 20:10 Sevelamer Carbonate (Renvela) 2,400 mg TIAC ORAL 05/08/18 06:30 06/05/18 11:29 05/08/18 05:45 Sodium Citrate (Bicitra) 30 ml EVERY 6 HOURS ORAL 05/06/18 12:00 06/05/18 11:59 05/08/18 05:45 Shadi Spencer MD May 08, 2018 12:45
[2018-05-08] MEDS ORDERED: SEROQUEL50 MG ORAL (13:15)
[2018-05-08] MEDS ORDERED: ALPRAZOLAM0.5 MG PO (13:16)
--- NOTE | 2018-05-08 14:39 | General Progress Note ---
Assessment/Plan Problem List: (1) Renal failure ICD Codes: N19 - Unspecified kidney failure SNOMED: 88681113 (2) UTI (urinary tract infection) ICD Codes: N39.0 - Urinary tract infection, site not specified SNOMED: 40306013 (3) Episode of generalized weakness ICD Codes: R53.1 - Weakness SNOMED: 54921701 (4) Anemia ICD Codes: D64.9 - Anemia, unspecified SNOMED: 162514343 (5) Altered mental status ICD Codes: R41.82 - Altered mental status, unspecified SNOMED: 174957548 (6) Autoimmune hepatitis ICD Codes: K75.4 - Autoimmune hepatitis SNOMED: 476652150 (7) Acute renal failure (ARF) ICD Codes: N17.9 - Acute kidney failure, unspecified SNOMED: 32243066 (8) Urinary retention ICD Codes: R33.9 - Retention of urine, unspecified SNOMED: 051591781 Assessment/Plan dc her w hh per request and insistance of family family insisted on dc today esrd see dc summary for details Subjective Allergies: Coded Allergies: CLONIDINE (Unverified Allergy, Mild, Rash, 05/06/18) clonidine patch* Objective Last 24 Hour Vital Signs Date Time Temp Pulse Resp B/P (MAP) Pulse Ox O2 Delivery O2 Flow Rate FiO2 05/08/18 12:00 95.4 81 20 102/53 (69) 95 95.4 05/08/18 09:00 Nasal Cannula 2.0 05/08/18 08:00 95.4 90 20 121/59 (79) 100 95.4 05/08/18 04:00 95.5 81 12 121/68 (85) 94 95.5 05/08/18 04:00 82 05/08/18 01:14 125 113/69 05/08/18 00:00 95 05/08/18 00:00 96.4 86 20 113/69 (84) 97 96.4 05/07/18 21:00 Nasal Cannula 2.0 05/07/18 20:05 Nasal Cannula 3.0 32 05/07/18 20:05 96 Nasal Cannula 3.0 32 05/07/18 20:00 95.7 113 18 109/72 (84) 95 95.7 05/07/18 20:00 105 05/07/18 16:00 125 05/07/18 16:00 95.7 110 20 143/78 (99) 95 95.7 Intake and Output 05/07/18 05/08/18 19:00 07:00 Intake Total 75 ml Balance 75 ml Intake Oral 75 ml # Bowel Movements 1 1 Laboratory Tests 05/08/18 05:20: White Blood Count 3.4L, Red Blood Count 4.28, Hemoglobin 13.7, Hematocrit 41.3, Mean Corpuscular Volume 97, Mean Corpuscular Hemoglobin 32.1H, Mean Corpuscular Hemoglobin Concent 33.2, Red Cell Distribution Width 15.3H, Platelet Count 24L, Mean Platelet Volume 7.5, Neutrophils (%) (Auto) , Lymphocytes (%) (Auto) , Monocytes (%) (Auto) , Eosinophils (%) (Auto) , Basophils (%) (Auto) , Differential Total Cells Counted 100, Neutrophils % (Manual) 93H, Lymphocytes % (Manual) 2L, Monocytes % (Manual) 2, Eosinophils % (Manual) 3, Basophils % ( Manual) 0, Band Neutrophils 0, Platelet Estimate DecreasedL, Platelet Morphology Normal, Anisocytosis 2+, Sodium Level 150H, Potassium Level 4.3, Chloride Level 106, Carbon Dioxide Level 13L, Anion Gap 31H, Blood Urea Nitrogen 184H, Creatinine 16.0H, Estimat Glomerular Filtration Rate , Glucose Level 191H, Lactic Acid Level 5.10H, Uric Acid 15.6H, Calcium Level 6.9L, Phosphorus Level 15.0H, Magnesium Level 2.6H, Total Bilirubin 0.8, Aspartate Amino Transf (AST/SGOT) 30, Alanine Aminotransferase (ALT/SGPT) 18, Alkaline Phosphatase 118H, Pro-B-Type Natriuretic Peptide 8472H, Total Protein 6.6, Albumin 2.3L, Globulin 4.3, Albumin/Globulin Ratio 0.5L 05/08/18 06:07: Stool Occult Blood Positive 05/08/18 11:50: Lactic Acid Level 4.60H Height (Feet): 5 Height (Inches): 2.00 Weight (Pounds): 114 Atilio Viera MD May 08, 2018 14:39
--- NOTE | 2018-05-08 15:01 | Pulmonology Progress Note ---
Assessment/Plan Assessment/Plan Hypoxemia in the setting of cirrhosis, LENI LENI on CKD UTI Decompensated cirrhosis FOBT + Autoimmune hepatitis Abd PleurX Pancytopenia AMS NSTEMI PLAN: Declines HD PRN PleurX drainage Monitor counts, transfuse PRN Monitor MS F/U renal recs Discuss GOC, DNAR, consider transition to a more comfort based approach --> daughter declines, likely home with HH Subjective Allergies: Coded Allergies: CLONIDINE (Unverified Allergy, Mild, Rash, 05/06/18) clonidine patch* Subjective AFVSS, stable on 2L No hx obtainable from pt No report of cough, no SOB Objective Last 24 Hour Vital Signs Date Time Temp Pulse Resp B/P (MAP) Pulse Ox O2 Delivery O2 Flow Rate FiO2 05/08/18 12:00 95.4 81 20 102/53 (69) 95 95.4 05/08/18 09:00 Nasal Cannula 2.0 05/08/18 08:00 95.4 90 20 121/59 (79) 100 95.4 05/08/18 04:00 95.5 81 12 121/68 (85) 94 95.5 05/08/18 04:00 82 05/08/18 01:14 125 113/69 05/08/18 00:00 95 05/08/18 00:00 96.4 86 20 113/69 (84) 97 96.4 05/07/18 21:00 Nasal Cannula 2.0 05/07/18 20:05 Nasal Cannula 3.0 32 05/07/18 20:05 96 Nasal Cannula 3.0 32 05/07/18 20:00 95.7 113 18 109/72 (84) 95 95.7 05/07/18 20:00 105 05/07/18 16:00 125 05/07/18 16:00 95.7 110 20 143/78 (99) 95 95.7 Intake and Output 05/07/18 05/08/18 19:00 07:00 Intake Total 75 ml Balance 75 ml Intake Oral 75 ml # Bowel Movements 1 1 General Appearance: cachetic HEENT: normocephalic, atraumatic Respiratory/Chest: rhonchi Cardiovascular: normal peripheral pulses, normal rate, regular rhythm Abdomen: normal bowel sounds, soft, non tender, no organomegaly, non distended , other - GT Extremities: no cyanosis, no clubbing, no edema Microbiology Date/Time Source Procedure Growth Status 05/05/18 16:15 Blood Blood Culture - Preliminary NO GROWTH AFTER 48 HOURS Resulted 05/05/18 16:00 Blood Blood Culture - Preliminary NO GROWTH AFTER 48 HOURS Resulted 05/05/18 16:17 Urine,Clean Catch Urine Culture - Preliminary Yeast Species Resulted Laboratory Tests 05/08/18 05:20: White Blood Count 3.4L, Red Blood Count 4.28, Hemoglobin 13.7, Hematocrit 41.3, Mean Corpuscular Volume 97, Mean Corpuscular Hemoglobin 32.1H, Mean Corpuscular Hemoglobin Concent 33.2, Red Cell Distribution Width 15.3H, Platelet Count 24L, Mean Platelet Volume 7.5, Neutrophils (%) (Auto) , Lymphocytes (%) (Auto) , Monocytes (%) (Auto) , Eosinophils (%) (Auto) , Basophils (%) (Auto) , Differential Total Cells Counted 100, Neutrophils % (Manual) 93H, Lymphocytes % (Manual) 2L, Monocytes % (Manual) 2, Eosinophils % (Manual) 3, Basophils % ( Manual) 0, Band Neutrophils 0, Platelet Estimate DecreasedL, Platelet Morphology Normal, Anisocytosis 2+, Sodium Level 150H, Potassium Level 4.3, Chloride Level 106, Carbon Dioxide Level 13L, Anion Gap 31H, Blood Urea Nitrogen 184H, Creatinine 16.0H, Estimat Glomerular Filtration Rate , Glucose Level 191H, Lactic Acid Level 5.10H, Uric Acid 15.6H, Calcium Level 6.9L, Phosphorus Level 15.0H, Magnesium Level 2.6H, Total Bilirubin 0.8, Aspartate Amino Transf (AST/SGOT) 30, Alanine Aminotransferase (ALT/SGPT) 18, Alkaline Phosphatase 118H, Pro-B-Type Natriuretic Peptide 8472H, Total Protein 6.6, Albumin 2.3L, Globulin 4.3, Albumin/Globulin Ratio 0.5L 05/08/18 06:07: Stool Occult Blood Positive 05/08/18 11:50: Lactic Acid Level 4.60H Current Medications Medications (Trade) Dose Ordered Sig/Dean Route PRN Reason Start Time Stop Time Status Last Admin Dose Admin Acetaminophen (Tylenol) 650 mg Q4H PRN GT MILD PAIN AND TEMP 05/05/18 23:15 06/04/18 23:14 05/05/18 23:41 Allopurinol (Allopurinol) 300 mg DAILY ORAL 05/07/18 09:00 06/06/18 08:59 05/07/18 09:29 Alprazolam (Xanax) 0.25 mg BEDTIME ORAL 05/07/18 21:00 05/14/18 20:59 05/07/18 20:10 Docusate Sodium (Colace) 100 mg THREE TIMES A DAY ORAL 05/06/18 18:00 06/05/18 17:59 05/06/18 17:12 Lactulose (Cephulac) 10 gm THREE TIMES A DAY ORAL 05/07/18 13:00 06/06/18 12:59 05/07/18 17:12 Metoclopramide HCl (Reglan) 10 mg Q6H PRN IVP Nausea & Vomiting 05/06/18 09:09 06/05/18 09:08 Ondansetron HCl (Zofran ODT) 4 mg Q6H PRN ORAL Nausea & Vomiting 05/07/18 14:30 06/06/18 14:29 05/07/18 14:38 Pantoprazole (Protonix) 40 mg DAILY IVP 05/05/18 20:30 06/04/18 20:29 05/07/18 09:29 Quetiapine Fumarate (SEROquel) 12.5 mg Q4H PRN ORAL agitation 05/07/18 11:15 06/06/18 11:14 Quetiapine Fumarate (SEROquel) 50 mg BEDTIME ORAL 05/07/18 21:00 06/06/18 20:59 05/07/18 20:10 Rifaximin (Xifaxan) 550 mg EVERY 12 HOURS ORAL 05/06/18 21:00 05/13/18 20:59 05/07/18 20:10 Sevelamer Carbonate (Renvela) 2,400 mg TIAC ORAL 05/08/18 06:30 06/05/18 11:29 05/08/18 05:45 Sodium Citrate (Bicitra) 30 ml EVERY 6 HOURS ORAL 05/06/18 12:00 06/05/18 11:59 05/08/18 05:45 Hemanth Gee MD May 08, 2018 15:01
--- NOTE | 2018-05-08 15:15 | Cardiology Report ---
APPROVED REPORT EXAM: Two-dimensional and M-mode echocardiogram with Doppler and color Doppler. INDICATION ALTERED LOC M-Mode DIMENSIONS IVSd1.0 (0.7-1.1cm)Left Atrium (MM)2.7 (1.6-4.0cm) LVDd3.0 (3.5-5.6cm)Aortic Root2.2 (2.0-3.7cm) PWd1.2 (0.7-1.1cm)Aortic Cusp Exc.1.5 (1.5-2.0cm) IVSs2.2 cm LVDs1.7 (2.5-4.0cm) Normal left ventricular chamber size, systolic function and wall motion . Left ventricular ejection fraction estimated to be 55 %. Mild left ventricular hypertrophy by 2-D. Small posterior pericardial effusion. Mild right cardiac chamber size enlargements . Normal left atrial chamber size . Focal aortic valve sclerosis with adequate cusp excursion. Thickened mitral valve leaflets with normal excursion. Mitral annulus and aortic root calcification. pulmonic valve not well visualized . Normal tricuspid valve structure. IVC at normal size with physiologic collapse. A color flow and spectral Doppler study was performed and revealed: No aortic insufficiency . Mild mitral regurgitation. Mitral diastolic velocities suggest reduced left ventricular relaxation c/w mild LV diastolic dysfunction (Grade I ). Mild to moderate tricuspid regurgitation. Tricuspid systolic velocities suggests peak right ventricular systolic pressure of 57mmHg, consistent with moderate pulmonary hypertension
[2018-05-08] MEDS ORDERED: D5NS 1000ml IV ONE (16:17)
[2018-05-08] MEDS ORDERED: D5 1/2NS 1000ml IV ONE ×2 (16:17)
--- NOTE | 2018-05-08 17:27 | Cardiology Progress Note ---
Assessment/Plan Assessment/Plan 1. Hypotension, resolved, possibly due to septic shock or hypoalbuminemia associated with liver cirrhosis. 2. Slight elevation of troponin I level, could be a variety of etiologies including sepsis, non-ST elevation myocardial infarction type 2, or troponin leakage associated with renal failure. At this time, given the patient's comorbidities including liver cirrhosis and severe renal failure, the patient is not considered to be a suitable candidate for ischemic workup. Echo revealed normal LVEF at 55%. 3. Hypertensive heart disease 4. ALOC, poor prognosis, being discharged home for comfort care. Subjective Subjective Sinus rhythm at 83. Altered. Refused hemodialysis. Objective Last 24 Hour Vital Signs Date Time Temp Pulse Resp B/P (MAP) Pulse Ox O2 Delivery O2 Flow Rate FiO2 05/08/18 12:00 96 05/08/18 12:00 95.4 81 20 102/53 (69) 95 95.4 05/08/18 09:00 Nasal Cannula 2.0 05/08/18 08:00 83 05/08/18 08:00 95.4 90 20 121/59 (79) 100 95.4 05/08/18 04:00 95.5 81 12 121/68 (85) 94 95.5 05/08/18 04:00 82 05/08/18 01:14 125 113/69 05/08/18 00:00 95 05/08/18 00:00 96.4 86 20 113/69 (84) 97 96.4 05/07/18 21:00 Nasal Cannula 2.0 05/07/18 20:05 Nasal Cannula 3.0 32 05/07/18 20:05 96 Nasal Cannula 3.0 32 05/07/18 20:00 95.7 113 18 109/72 (84) 95 95.7 05/07/18 20:00 105 Intake and Output 05/07/18 05/08/18 19:00 07:00 Intake Total 75 ml Balance 75 ml Intake Oral 75 ml # Bowel Movements 1 1 2D Echo: EF 55%, Mild LVH, Mild MR, Grade I LVDD, RVSP 57 mmHg Laboratory Tests Test 05/08/18 05:20 05/08/18 06:07 05/08/18 11:50 White Blood Count 3.4 K/UL (4.8-10.8) L Red Blood Count 4.28 M/UL (4.20-5.40) Hemoglobin 13.7 G/DL (12.0-16.0) Hematocrit 41.3 % (37.0-47.0) Mean Corpuscular Volume 97 FL (80-99) Mean Corpuscular Hemoglobin 32.1 PG (27.0-31.0) H Mean Corpuscular Hemoglobin Concent 33.2 G/DL (32.0-36.0) Red Cell Distribution Width 15.3 % (11.6-14.8) H Platelet Count 24 K/UL (150-450) L Mean Platelet Volume 7.5 FL (6.5-10.1) Neutrophils (%) (Auto) % (45.0-75.0) Lymphocytes (%) (Auto) % (20.0-45.0) Monocytes (%) (Auto) % (1.0-10.0) Eosinophils (%) (Auto) % (0.0-3.0) Basophils (%) (Auto) % (0.0-2.0) Differential Total Cells Counted 100 Neutrophils % (Manual) 93 % (45-75) H Lymphocytes % (Manual) 2 % (20-45) L Monocytes % (Manual) 2 % (1-10) Eosinophils % (Manual) 3 % (0-3) Basophils % (Manual) 0 % (0-2) Band Neutrophils 0 % (0-8) Platelet Estimate Decreased L Platelet Morphology Normal Anisocytosis 2+ Sodium Level 150 MMOL/L (136-145) H Potassium Level 4.3 MMOL/L (3.5-5.1) Chloride Level 106 MMOL/L (98-107) Carbon Dioxide Level 13 MMOL/L (21-32) L Anion Gap 31 mmol/L (5-15) H Blood Urea Nitrogen 184 mg/dL (7-18) H Creatinine 16.0 MG/DL (0.55-1.30) H Estimat Glomerular Filtration Rate mL/min (>60) Glucose Level 191 MG/DL (74-106) H Lactic Acid Level 5.10 mmol/L (0.4-2.0) H 4.60 mmol/L (0.66-2.22) H Uric Acid 15.6 MG/DL (2.6-7.2) H Calcium Level 6.9 MG/DL (8.5-10.1) L Phosphorus Level 15.0 MG/DL (2.5-4.9) H Magnesium Level 2.6 MG/DL (1.8-2.4) H Total Bilirubin 0.8 MG/DL (0.2-1.0) Aspartate Amino Transf (AST/SGOT) 30 U/L (15-37) Alanine Aminotransferase (ALT/SGPT) 18 U/L (12-78) Alkaline Phosphatase 118 U/L (46-116) H Pro-B-Type Natriuretic Peptide 8472 pg/mL (0-125) H Total Protein 6.6 G/DL (6.4-8.2) Albumin 2.3 G/DL (3.4-5.0) L Globulin 4.3 g/dL Albumin/Globulin Ratio 0.5 (1.0-2.7) L Stool Occult Blood Positive (NEGATIVE) Objective HEENT: Atraumatic and normocephalic. Pupils are equal, round, and reactive to light and accommodation. Conjunctivae pallor. NECK: JVP less than 5 cm. No carotid bruit. CARDIOVASCULAR: Normal S1 and S2. No murmurs, gallops, or rubs. LUNGS: Diminished breath sounds in both bases. ABDOMEN: Soft, nontender, and nondistended. No hepatosplenomegaly. Positive bowel sounds. EXTREMITIES: No evidence of edema, clubbing, or cyanosis. Rubio Meyer MD May 08, 2018 17:26
--- NOTE | 2018-05-10 14:56 | Discharge Summary ---
Discharge Summary Discharge Summary _ DATE OF ADMISSION: 05/05/2018 DATE OF DISCHARGE: 05/08/2018 REASON FOR ADMISSION: 87 years old female with past medical history of autoimmune hepatitis and subsequent cirrhosis, diabetes mellitus, coronary artery disease, HTN, presented with episode of vomiting and generalized weakness. Patient was unable to tolerate home medications, including lactulose. Per family, patient was talking more slowly than usual , but no slurred speech and no focal weakness noted by family members. No falls, no injury. Patient presented with an indwelling Sosa catheter, which was not changed for more than one month. Upon evaluation vital signs were stable. No leukocytosis, hemoglobin 9.1 hematocrit 28.8. Platelets 63. BUN 196 creatinine 16.6. Sodium 147. Ammonia 34. Troponin elevated 0.727 Albumin 2.4 Stable LFT . Urinalysis with evidence of pyuria and bacteria. CT of the head revealed chronic age-related changes. 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 No acute intracranial bleeding or mass effect. Chest x-ray revealed no acute cardiopulmonary pathology. EKG revealed sinus rhythm, no acute ischemic changes. Patient admitted with diagnoses of UTI, renal failure ,anemia ,generalized weakness, autoimmune hepatitis with cirrhosis, CONSULTANTS: engineering assistant Dr. Ardon pulmonary Dr. Gee ID specialist GI specialist Dr. Rosa automatic machine attendant/oncologist Dr. Rogers psychiatrist urologist Dr. Mabry [facility]: Patient admitted. Family declined hemodialysis. Urologist seen the patient . Renal ultrasound revealed evidence of medical renal disease. No evidence of kidney obstruction. Sosa catheter was replaced by urologist woth easy irrigation, indicating good position within the bladder. Infectious disease specialist closely followed. Patient initially was placed on antibiotics, Blood culture were negative , urine culture revealed yeast . Rocephin discontinued , rifaximin was continued. Cascade Operator closely followed. Patient has severe pancytopenia with worsening , likely secondary to liver cirrhosis . Hemoglobin, hematocrit and platelet count were closely monitored with goal to keep hemoglobin above 7 and platelet count above 20. Patient undergone blood transfusion . Prior to discharge. hemoglobin 13.7, hematocrit 43.7. Platelet count remained low-24. Vitamin K was given to correct coagulopathy. Anemia workup revealed anemia of chronic disease. Patient also demonstrated elevated ferritin level . Ferritin level 734. Patient may need outpatient chelation therapy . Cascade Operator recommended to recheck ferritin level in several months. Director Stars closely followed . Serial troponin with mild elevation. EKG revealed no acute ischemic changes. Multiple differential diagnoses could account for mild elevation in troponin , including renal failure or NSTEMI. Per engineering assistant , given the patient's comorbidities, including liver cirrhosis , severe renal failure, patient was not a suitable candidate for ischemia workup. Echocardiogram revealed preserved ejection fraction 55% and evidence of moderate pulmonary hypertension. Patient initially was hypotensive , probably due to sepsis or hypoalbuminemia associated with liver cirrhosis . Blood pressure stabilized. Telecommunications Line Mechanic closely followed. Patient exhibited hypoxemia in the setting of cirrhosis and renal failure. Supplemental oxygen provided as needed , pulmonary toilet was on standby. Patient declined hemodialysis. Telecommunications Line Mechanic recommended Pleurx catheter drainage as needed. GI specialist closely follow. Stool for occult blood was positive x 2. GI specialist recommended to hold GI procedure at this time, given elevated troponin. If family choose to have GI procedure, then patient will require cardiac clearance prior to it. Patient was on low-dose lactulose and Rifaximin f or hepatic encephalopathy. PPI provided. LFT were closely monitored. Symptomatic treatment provided. Antiemetics provided as needed. Hepatitis panel negative. HIV status negative. Psychiatrist closely followed and diagnosed patient with encephalopathy due to the general medical condition and dementia. Psychiatric medication regimen was optimized. All consultants agreed that overall prognosis in this patient was poor. Several consultants discussed with the patient's family DO NOT RESUSCITATE status and appropriateness to transition to comfort-based approach. Daughter declined DO NOT RESUSCITATE status and hospice services. Patient was discharged home with home health services. Overall prognosis poor. FINAL DIAGNOSES: Acute renal failure on chronic kidney disease Decompensated cirrhosis secondary to autoimmune hepatitis Anemia of chronic disease Anemia status post blood transfusion Elevated troponin possibly due to NSTEMI Hypotension Hypertensive heart disease Diabetes mellitus Altered mental status due to encephalopathy , secondary to general medical condition Hypoxemia in the setting of cirrhosis Pancytopenia DISCHARGE MEDICATIONS: See Medication Reconciliation list. DISCHARGE INSTRUCTIONS: Patient was discharged home with home health services. Overall prognosis poor. I have been assigned to dictate discharge summary for this account. I was not involved in the patient's management. Marcela Link NP May 10, 2018 14:56
== END 2018-05-08 16:18 | disposition home health service (06) | DRG 682 ==
LOC: EDBD 15:22 → EMR 15:35 → EDBEDREQ 16:38 → 4E 17:13 → EDBEDREQ 18:25 → 2E 20:54
DX: N17.9 Acute kidney failure, unspecified (principal); I21.4 Non-ST elevation (NSTEMI) myocardial infarction; G93.40 Encephalopathy, unspecified; N39.0 Urinary tract infection, site not specified; I13.2 Hypertensive heart and chronic kidney disease with heart failure and with stage 5 chronic kidney disease, or end stage renal disease; D61.818 Other pancytopenia; K74.60 Unspecified cirrhosis of liver; K75.4 Autoimmune hepatitis; I50.9 Heart failure, unspecified; E11.22 Type 2 diabetes mellitus with diabetic chronic kidney disease; N18.6 End stage renal disease; R09.02 Hypoxemia; I95.9 Hypotension, unspecified; I25.10 Atherosclerotic heart disease of native coronary artery without angina pectoris; D63.8 Anemia in other chronic diseases classified elsewhere; E83.52 Hypercalcemia; Z88.6 Allergy status to analgesic agent; F03.90 Unspecified dementia, unspecified severity, without behavioral disturbance, psychotic disturbance, mood disturbance, and anxiety; R33.9 Retention of urine, unspecified
CPT/HCPCS: 36415; 36600; 70450; 71045; 76770; 76856; 80053; 80061; 81003; 82140; 82248; 82270; 82533; 82550; 82553; 82607; 82728; 82746; 82803; 82977; 83036; 83540; 83550; 83605; 83690; 83735; 83880; 84100; 84443; 84484; 84550; 85007; 85025; 85060; 85610; 85730; 86140; 86703; 86705; 86709; 86803; 86850; 86900; 86901; 86920; 87040; 87086; 87340; 93005; 93306; 94760; 96365; 99285; J2405